=== PATIENT | male | born 1955 | race Caucasian/White ===

== ENCOUNTER 2019-05-19 10:33 | Outpatient (CLI) | payer OTHER, SELFPAY ==
[2019-05-19 11:36] LABS: Alanine Aminotransferase 70 U/L (16-63); Albumin Level 3.3 g/dL (3.4-5.0); Alkaline Phosphatase 94 U/L (46-116); Anion Gap 17.3 mmol/L (7-16); Aspartate Amino Transferase 63 U/L (15-37); Bilirubin,Total 0.3 mg/dL (0.00-1.00); Blood Urea Nitrogen 12 mg/dL (7-18); Carbon Dioxide 25 mmol/L (21-32); Chloride 101 mmol/L (98-108); Estimated Glomerular Filt Rate > 60; Glucose 104 mg/dL (70-99); Osmolality Calculated 287 mOsm/kg (285-295); Potassium 4.3 mmol/L (3.5-5.1); Sodium 139 mmol/L (136-145); Total Protein 6.7 g/dL (6.4-8.2)
== END 2019-05-19 10:34 | disposition home or self-care (01) ==
PROVIDERS: PCP Internal Medicine; Visit Provider Internal Medicine
DX: R79.89 Other specified abnormal findings of blood chemistry (principal)
CPT/HCPCS: 36415; 80053

== ENCOUNTER 2019-06-07 08:20 | Outpatient (CLI) | payer OTHER, SELFPAY ==
--- NOTE | ~2019-06-07 | US_ITS ---
EXAMINATION: US right upper quadrant EXAM DATE: 06/07/2019 11:13 INDICATION: Elevated liver enzymes. TECHNIQUE: Multiple grayscale and Doppler images of the abdomen right upper quadrant were obtained (dhruv y a technologist who performed the scan) and subsequently reviewed. There is no prior study for [place]. FINDINGS: The pancreatic head and body are normal in appearance. The pancreatic tail is not visualized. The l iver has normal echogenicity and contour. There are no focal liver lesions identified. There is no evidence of intrahepatic biliary duct dilation. Portal venous flow was seen in the hepatopedal, nor mal direction and has normal Doppler waveform. No right-sided hydronephrosis. Common bile duct measures 7 mm, tapering down to 5 at the pancreatic head, which is normal for age. T he gallbladder wall is normal in thickness, with expected amount of distention. No sonographic evide nce of pericholecystic fluid. There is no cholelithiases. Technologist performing exam reports patie nt did not demonstrate sonographic Zarco's sign. Please note that this sign is less reliable in pat ients who have received pain medication. IMPRESSION: 1. Unremarkable abdominal ultrasound exam. Reviewed, dictated and finalized at location A.
== END 2019-06-07 08:21 | disposition home or self-care (01) ==
LOC: CHSIMG 08:21
PROVIDERS: PCP Internal Medicine; Visit Provider Internal Medicine
DX: R79.89 Other specified abnormal findings of blood chemistry (principal)
CPT/HCPCS: 76705

== ENCOUNTER 2019-09-15 10:20 | Outpatient (CLI) | payer OTHER, SELFPAY ==
[2019-09-15 10:45] LABS: Add Urine Microscopic? YES; Appearance Urine Clear (Clear); Bilirubin Urine Negative (Negative); Blood Urine Negative (Negative); Color Urine Yellow (Yellow); Glucose Urine UA Negative (Negative); Ketones Urine Trace (Negative); Leukocyte Esterase Ur Negative (Negative); Nitrate Urine Negative (Negative); Protein Urine Negative (Negative); Specific Grav Ur 1.025 (1.010-1.020); Urobilinogen Urine 0.2 mg/dL (0.2-1.0)
[2019-09-15 11:02] LABS: Bacteria Urine 2+ /hpf; RBC Urine 0-2 /hpf (0-2); Squamous Epithelial Cell Urine Few /hpf (Few)
[2019-09-15 11:37] LABS: Alanine Aminotransferase 47 U/L (16-63); Albumin Level 3.4 g/dL (3.4-5.0); Alkaline Phosphatase 87 U/L (46-116); Anion Gap 15.6 mmol/L (7-16); Aspartate Amino Transferase 52 U/L (15-37); Bilirubin,Total 0.2 mg/dL (0.00-1.00); Blood Urea Nitrogen 11 mg/dL (7-18); Carbon Dioxide 25 mmol/L (21-32); Chloride 98 mmol/L (98-108); Cholesterol 186 mg/dL (0-200); Creatine Kinase 60 U/L (39-308); Estimated Glomerular Filt Rate > 60; Glucose 96 mg/dL (70-99); HDL Direct 63 mg/dL (40-60); LDL Cholesterol Calculated 32 mg/dL (<130); Osmolality Calculated 277 mOsm/kg (285-295); Potassium 4.6 mmol/L (3.5-5.1); Prostate Specific Antigen 2.2 ng/mL (< OR = 4.0); Sodium 134 mmol/L (136-145); Total Protein 6.8 g/dL (6.4-8.2); Triglycerides 454 mg/dL (0-150)
[2019-09-15 11:41] LABS: LDL Cholesterol Direct 68 mg/dL (0-130)
== END 2019-09-15 10:21 | disposition home or self-care (01) ==
PROVIDERS: PCP Internal Medicine; Visit Provider Internal Medicine
DX: E78.2 Mixed hyperlipidemia (principal); I10 Essential (primary) hypertension; Z12.5 Encounter for screening for malignant neoplasm of prostate
CPT/HCPCS: 36415; 80053; 80061; 81001; 82550; 83721; 84153; G0103

== ENCOUNTER 2019-10-23 09:44 | Outpatient (CLI) | payer OTHER, SELFPAY ==
--- NOTE | ~2019-10-23 | US_ITS ---
EXAMINATION: US arterial ankle brachial ind DATE: 10/23/2019 11:05 INDICATION: Peripheral arterial disease of the lower extremities. Hyperlipidemia, hypertension. Smoke r. TECHNIQUE: Segmental pressures and plethysmographic and Doppler waveforms of the brachial and lower e xtremity arteries were obtained. COMPARISON: None. FINDINGS: Right and left brachial artery pressures of 159 mm Hg and 143 mm Hg, respectively, are concordant (no rmal difference <= 30 mmHg). The right ankle-brachial index (NICHOL) is 0.77 (normal >= 0.9-1.0). Arterial Doppler waveforms are biph asic. The left NICHOL is 0.60. Arterial Doppler waveforms are biphasic. IMPRESSION: Abnormally low right and left NICHOL values of 0.77 and 0.60 Reviewed, dictated and finalized at Location A. Reviewed, dictated and finalized at location B.
== END 2019-10-23 09:45 | disposition home or self-care (01) ==
LOC: CHSIMG 09:45
PROVIDERS: PCP Internal Medicine; Visit Provider Internal Medicine
DX: I73.9 Peripheral vascular disease, unspecified (principal)
CPT/HCPCS: 93922

== ENCOUNTER 2020-03-25 08:31 | Outpatient (CLI) | payer OTHER, SELFPAY ==
[2020-03-25 08:45] LABS: Basophils Absolute Auto 0.09 K/mm3 (0.00-0.10); Basophils Percent Auto 0.8 % (0.0-1.0); Eosinophils Absolute Auto 0.11 K/mm3 (0.02-0.50); Hematocrit 40.6 % (40.0-54.0); Hemoglobin 14.2 g/dL (14.0-18.0); Immature Granulocyte Absolute 0.02 K/mm3 (0.00-0.00); Immature Granulocyte Percent A 0.2 % (0.0-0.0); Lymphocytes Absolute Auto 5.12 K/mm3 (1.10-4.50); Lymphocytes Percent Auto 46.8 % (18.0-42.0); Mean Corpuscular Hemoglobin 34.2 pg (27.0-31.0); Mean Corpuscular Volume 97.8 fL (78.0-102.0); Mean Platelet Volume 9.5 fl (8.7-11.0); Monocytes Absolute Auto 0.75 K/mm3 (0.10-0.90); Monocytes Percent Auto 6.9 % (2.0-11.0); Neutrophils Absolute Auto 4.9 K/mm3 (1.7-7.2); Neutrophils Percent Auto 44.3 % (50.0-70.0); Platelet Count Result 211 K/mm3 (150-420); Red Blood Count 4.15 M/mm3 (4.70-6.10); Red Cell Distribution Width 13.6 % (11.6-14.4); White Blood Count 10.9 K/mm3 (4.8-10.8)
[2020-03-25 08:50] LABS: Add Urine Microscopic? NO; Appearance Urine Clear (Clear); Bilirubin Urine Negative (Negative); Blood Urine Negative (Negative); Color Urine Yellow (Yellow); Glucose Urine UA Negative (Negative); Ketones Urine Negative (Negative); Leukocyte Esterase Ur Negative LEU/UL (Negative); Nitrate Urine Negative (Negative); Protein Urine Negative (Negative); Specific Grav Ur 1.015 (1.010-1.020); Urobilinogen Urine 0.2 mg/dL (0.2-1.0)
[2020-03-25 08:55] LABS: Hemoglobin A1C 5.5 % (<5.7)
[2020-03-25 09:41] LABS: Creatinine Urine 98.13 mg/dL (40-278); MALB Creatinine Ratio 13.2 mg/g (0-30); Microalbumin Urine Random < 13.0 mg/L
[2020-03-25 11:28] LABS: Alanine Aminotransferase 300 U/L (16-63); Aspartate Amino Transferase 423 U/L (15-37)
[2020-03-25 11:31] LABS: Chloride 95 mmol/L (98-108); Potassium 4.3 mmol/L (3.5-5.1); Sodium 130 mmol/L (136-145)
[2020-03-25 11:32] LABS: Anion Gap 8 mmol/L (8-16); Blood Urea Nitrogen 14 mg/dL (7-18); Carbon Dioxide 27 mmol/L (21-32); Estimated Glomerular Filt Rate > 60
[2020-03-25 11:33] LABS: Bilirubin,Total 0.7 mg/dL (0.00-1.00); Calcium 8.2 mg/dL (8.5-10.1); Magnesium 1.5 mg/dL (1.8-2.4); Triglycerides > 1000 mg/dL (0-150)
[2020-03-25 11:34] LABS: Albumin Level 2.6 g/dL (3.4-5.0); Creatine Kinase 56 U/L (39-308); Glucose 143 mg/dL (70-99); Osmolality Calculated 272 mOsm/kg (285-295)
[2020-03-25 11:35] LABS: Alkaline Phosphatase 175 U/L (46-116); Cholesterol 242 mg/dL (0-200); Free T3 2.18 pg/mL (2.18-3.98); Free T4 Free Thyroxine 0.96 ng/dL (0.76-1.46); HDL Direct 16 mg/dL (40-60); LDL Cholesterol Calculated 26 mg/dL (<130); Thyroid Stimulating Hormone 2.32 uIU/mL (0.36-3.74)
== END 2020-03-25 08:32 | disposition home or self-care (01) ==
LOC: CHSLAB 08:33
PROVIDERS: PCP Internal Medicine; Visit Provider Internal Medicine
DX: R73.01 Impaired fasting glucose (principal); I10 Essential (primary) hypertension; E78.5 Hyperlipidemia, unspecified; I49.3 Ventricular premature depolarization
CPT/HCPCS: 36415; 80053; 80061; 81003; 82043; 82550; 83036; 83735; 84439; 84443; 84481; 85025

== ENCOUNTER 2020-03-27 07:55 | Outpatient (CLI) | payer OTHER, SELFPAY ==
--- NOTE | ~2020-03-27 | US_ITS ---
US right upper quadrant INDICATION: Elevated liver enzymes PROCEDURE: Realtime right upper abdominal ultrasound. COMPARISON: No prior studies for comparison. FINDINGS: The pancreas is normal without focal mass or pancreatic ductal dilation. Liver echotexture is normal without focal mass or intrahepatic biliary dilatation. There is normal directional flow i n the portal vein. The gallbladder is normal without stones, gallbladder wall thickening or pericholecystic fluid. Comm on bile duct measures 7.4 mm, unchanged. No sonographic Zarco's sign. IMPRESSION: 1: Unremarkable limited abdominal ultrasound. Reviewed, dictated and finalized at location A. [employer]
== END 2020-03-27 07:56 | disposition home or self-care (01) ==
LOC: CHSIMG 07:56
PROVIDERS: PCP Internal Medicine; Visit Provider Internal Medicine
DX: R94.5 Abnormal results of liver function studies (principal)
CPT/HCPCS: 76705

== ENCOUNTER 2020-03-29 11:21 | Outpatient (CLI) | payer OTHER, SELFPAY ==
[2020-03-29 11:52] LABS: Basophils Absolute Auto 0.06 K/mm3 (0.00-0.10); Basophils Percent Auto 0.6 % (0.0-1.0); Eosinophils Absolute Auto 0.05 K/mm3 (0.02-0.50); Eosinophils Percent Auto 0.5 % (1.0-6.0); Hematocrit 40.1 % (40.0-54.0); Hemoglobin 13.9 g/dL (14.0-18.0); Immature Granulocyte Absolute 0.02 K/mm3 (0.00-0.00); Immature Granulocyte Percent A 0.2 % (0.0-0.0); Lymphocytes Absolute Auto 2.87 K/mm3 (1.10-4.50); Lymphocytes Percent Auto 29.2 % (18.0-42.0); Mean Corpuscular HGB Conc 34.7 g/dL (32.0-36.0); Mean Corpuscular Hemoglobin 34.2 pg (27.0-31.0); Mean Corpuscular Volume 98.5 fL (78.0-102.0); Mean Platelet Volume 9.8 fl (8.7-11.0); Monocytes Absolute Auto 0.95 K/mm3 (0.10-0.90); Monocytes Percent Auto 9.7 % (2.0-11.0); Neutrophils Absolute Auto 5.9 K/mm3 (1.7-7.2); Neutrophils Percent Auto 59.8 % (50.0-70.0); Platelet Count Result 199 K/mm3 (150-420); Red Blood Count 4.07 M/mm3 (4.70-6.10); Red Cell Distribution Width 14.2 % (11.6-14.4); White Blood Count 9.8 K/mm3 (4.8-10.8)
[2020-03-29 11:54] LABS: Add Urine Microscopic? NO; Appearance Urine Clear (Clear); Bilirubin Urine Negative (Negative); Blood Urine Negative (Negative); Color Urine Yellow (Yellow); Glucose Urine UA Negative (Negative); Ketones Urine Negative (Negative); Leukocyte Esterase Ur Negative (Negative); Nitrate Urine Negative (Negative); Protein Urine Negative (Negative); Urobilinogen Urine 0.2 mg/dL (0.2-1.0); pH Urine 6.5 (5.0-8.0)
[2020-03-29 12:10] LABS: SARS-CoV-2 Ag Negative (Negative)
[2020-03-29 12:41] LABS: Alanine Aminotransferase 211 U/L (16-63); Albumin Level 3.2 g/dL (3.4-5.0); Alkaline Phosphatase 157 U/L (46-116); Anion Gap 9 mmol/L (8-16); Aspartate Amino Transferase 143 U/L (15-37); Bilirubin,Total 0.5 mg/dL (0.00-1.00); Blood Urea Nitrogen 12 mg/dL (7-18); Calcium 9.2 mg/dL (8.5-10.1); Carbon Dioxide 27 mmol/L (21-32); Chloride 96 mmol/L (98-108); Estimated Glomerular Filt Rate > 60; Glucose 103 mg/dL (70-99); Lactate Dehydrogenase 234 U/L (85-227); Osmolality Calculated 273 mOsm/kg (285-295); Potassium 4.5 mmol/L (3.5-5.1); Sodium 132 mmol/L (136-145); Total Protein 6.8 g/dL (6.4-8.2)
[2020-03-29 12:47] LABS: HIV 1 P24 AG Negative (Negative); HIV 1/2 AB Negative (Negative)
[2020-03-29 12:51] LABS: GGT > 690.0 U/L (15-85)
[2020-03-29 12:55] LABS: Erythrocyte Sedimentation Rate 11 mm/hr (0-20)
[2020-04-04 11:43] LABS: Hepatitis B Surface Antibody Nonreactive (Nonreactive); Hepatitis C Signal to Cutoff 0.02 ratio (<1.00); Hepatitis C Virus Antibody Nonreactive (Nonreactive)
== END 2020-03-29 11:22 | disposition home or self-care (01) ==
LOC: CHSLAB 11:22
PROVIDERS: PCP Internal Medicine; Visit Provider Internal Medicine
DX: B17.9 Acute viral hepatitis, unspecified (principal); Z20.822 Contact with and (suspected) exposure to COVID-19
CPT/HCPCS: 36415; 80053; 81003; 82977; 83615; 85025; 85652; 86038; 86703; 86706; 86769; 87426; C9803

== ENCOUNTER 2020-04-05 08:07 | Outpatient (CLI) | payer OTHER, SELFPAY ==
[2020-04-05 09:15] LABS: Alanine Aminotransferase 73 U/L (16-63); Albumin Level 3.1 g/dL (3.4-5.0); Alkaline Phosphatase 95 U/L (46-116); Anion Gap 5 mmol/L (8-16); Aspartate Amino Transferase 35 U/L (15-37); Bilirubin,Total 0.4 mg/dL (0.00-1.00); Blood Urea Nitrogen 8 mg/dL (7-18); Calcium 9.3 mg/dL (8.5-10.1); Carbon Dioxide 29 mmol/L (21-32); Chloride 102 mmol/L (98-108); Estimated Glomerular Filt Rate > 60; Glucose 92 mg/dL (70-99); Osmolality Calculated 280 mOsm/kg (285-295); Potassium 4.6 mmol/L (3.5-5.1); Sodium 136 mmol/L (136-145); Total Protein 6.3 g/dL (6.4-8.2)
== END 2020-04-05 08:08 | disposition home or self-care (01) ==
LOC: CHSLAB 08:08
PROVIDERS: PCP Internal Medicine; Visit Provider Internal Medicine
DX: R94.5 Abnormal results of liver function studies (principal)
CPT/HCPCS: 36415; 80053

== ENCOUNTER 2020-05-06 08:45 | Outpatient (CLI) | payer OTHER, SELFPAY ==
[2020-05-06 10:00] LABS: Alanine Aminotransferase 35 U/L (16-63); Albumin Level 3.5 g/dL (3.4-5.0); Alkaline Phosphatase 72 U/L (46-116); Anion Gap 9 mmol/L (8-16); Aspartate Amino Transferase 25 U/L (15-37); Bilirubin,Total 0.3 mg/dL (0.00-1.00); Blood Urea Nitrogen 13 mg/dL (7-18); Carbon Dioxide 30 mmol/L (21-32); Chloride 97 mmol/L (98-108); Estimated Glomerular Filt Rate > 60; Glucose 100 mg/dL (70-99); Osmolality Calculated 282 mOsm/kg (285-295); Potassium 4.3 mmol/L (3.5-5.1); Sodium 136 mmol/L (136-145); Total Protein 6.9 g/dL (6.4-8.2)
== END 2020-05-06 08:46 | disposition home or self-care (01) ==
LOC: CHSLAB 08:46
PROVIDERS: PCP Internal Medicine; Visit Provider Internal Medicine
DX: R94.5 Abnormal results of liver function studies (principal)
CPT/HCPCS: 36415; 80053

== ENCOUNTER 2020-07-20 08:39 | Outpatient (CLI) | payer OTHER, SELFPAY | END 2020-07-20 08:40 | disposition home or self-care (01) | LOC: CHSCOVIDVC 08:39 | PROVIDERS: PCP Internal Medicine | DX: Z23 Encounter for immunization (principal) | CPT/HCPCS: 0011A; 91301 ==

== ENCOUNTER 2020-08-17 08:36 | Outpatient (CLI) | payer OTHER, SELFPAY | END 2020-08-17 08:37 | disposition home or self-care (01) | LOC: CHSCOVIDVC 08:36 | PROVIDERS: PCP Internal Medicine | DX: Z23 Encounter for immunization (principal) | CPT/HCPCS: 0012A; 91301 ==

== ENCOUNTER 2020-09-18 08:06 | Outpatient (CLI) | payer OTHER, SELFPAY ==
[2020-09-18 08:20] LABS: Add Urine Microscopic? YES; Appearance Urine Clear (Clear); Basophils Absolute Auto 0.08 K/mm3 (0.00-0.10); Basophils Percent Auto 0.8 % (0.0-1.0); Bilirubin Urine Negative (Negative); Blood Urine Negative (Negative); Color Urine Light Yellow (Yellow); Eosinophils Absolute Auto 0.39 K/mm3 (0.02-0.50); Glucose Urine UA Negative (Negative); Hematocrit 45.5 % (40.0-54.0); Hemoglobin 15.3 g/dL (14.0-18.0); Immature Granulocyte Absolute 0.02 K/mm3 (0.00-0.00); Immature Granulocyte Percent A 0.2 % (0.0-0.0); Ketones Urine Negative (Negative); Leukocyte Esterase Ur Trace LEU/UL (Negative); Lymphocytes Absolute Auto 4.21 K/mm3 (1.10-4.50); Lymphocytes Percent Auto 42.8 % (18.0-42.0); Mean Corpuscular HGB Conc 33.6 g/dL (32.0-36.0); Mean Corpuscular Hemoglobin 32.8 pg (27.0-31.0); Mean Corpuscular Volume 97.4 fL (78.0-102.0); Mean Platelet Volume 9.8 fl (8.7-11.0); Monocytes Absolute Auto 0.77 K/mm3 (0.10-0.90); Monocytes Percent Auto 7.8 % (2.0-11.0); Neutrophils Absolute Auto 4.4 K/mm3 (1.7-7.2); Neutrophils Percent Auto 44.4 % (50.0-70.0); Nitrate Urine Negative (Negative); Platelet Count Result 232 K/mm3 (150-420); Protein Urine Negative (Negative); Red Blood Count 4.67 M/mm3 (4.70-6.10); Urobilinogen Urine 0.2 mg/dL (0.2-1.0); White Blood Count 9.8 K/mm3 (4.8-10.8)
[2020-09-18 08:35] LABS: Creatinine Urine 106.16 mg/dL (40-278); MALB Creatinine Ratio 5.3 mg/g (0-30); Microalbumin Urine Random 5.7 mg/L
[2020-09-18 08:42] LABS: Bacteria Urine Trace /hpf; Hemoglobin A1C 5.4 % (<5.7); RBC Urine None seen /hpf (0-2); WBC Urine 0-3 /hpf (0-3)
[2020-09-18 09:32] LABS: Alanine Aminotransferase 35 U/L (16-63); Albumin Level 3.5 g/dL (3.4-5.0); Alkaline Phosphatase 70 U/L (46-116); Anion Gap 12 mmol/L (8-16); Aspartate Amino Transferase 27 U/L (15-37); Bilirubin,Total 0.4 mg/dL (0.00-1.00); Blood Urea Nitrogen 10 mg/dL (7-18); Calcium 9.7 mg/dL (8.5-10.1); Carbon Dioxide 28 mmol/L (21-32); Chloride 99 mmol/L (98-108); Cholesterol 257 mg/dL (0-200); Creatine Kinase 41 U/L (39-308); Estimated Glomerular Filt Rate > 60; Glucose 102 mg/dL (70-99); HDL Direct 52 mg/dL (40-60); LDL Cholesterol Calculated 135 mg/dL (<130); Osmolality Calculated 287 mOsm/kg (285-295); Potassium 4.5 mmol/L (3.5-5.1); Prostate Specific Antigen 2.5 ng/mL (< OR = 4.0); Sodium 139 mmol/L (136-145); Triglycerides 351 mg/dL (0-150)
== END 2020-09-18 08:07 | disposition home or self-care (01) ==
LOC: CHSLAB 08:07
PROVIDERS: PCP Internal Medicine; Visit Provider Internal Medicine
DX: E78.5 Hyperlipidemia, unspecified (principal); Z12.5 Encounter for screening for malignant neoplasm of prostate; I10 Essential (primary) hypertension; R73.01 Impaired fasting glucose
CPT/HCPCS: 36415; 80053; 80061; 81001; 82043; 82550; 83036; 84153; 85025; G0103

== ENCOUNTER 2020-12-16 12:12 | Outpatient (CLI) | payer OTHER, SELFPAY ==
--- NOTE | ~2020-12-16 | US_ITS ---
EXAMINATION: US arterial ankle brachial ind DATE: 12/16/2020 13:01 INDICATION: Bilateral peripheral arterial disease. Hypertension. Smoker. TECHNIQUE: Segmental pressures and plethysmographic and Doppler waveforms of the brachial and lower e xtremity arteries were obtained. COMPARISON: 10/23/2019 ultrasound NICHOL FINDINGS: Right and left brachial artery pressures of 143 mm Hg and 133 mm Hg, respectively, are concordant (no rmal difference <= 30 mmHg). The right ankle-brachial index (NICHOL) is 0.83 (normal >= 0.9-1.0). Arterial Doppler waveforms are trip hasic at the posterior tibial and dorsalis pedis arteries. The left NICHOL is 0.71. Arterial Doppler waveforms are biphasic at the posterior tibial and triphasic a t the dorsalis pedis arteries. IMPRESSION: Diminished right NICHOL is 0.83 Diminished left NICHOL of 0.71 These compared to right and left NICHOL values of 0.77 and 0.60, respectively on 10/23/2019 Reviewed, dictated and finalized at Location [facility]. Reviewed, dictated and finalized at location B.
--- NOTE | ~2020-12-16 | US_ITS ---
EXAMINATION: US carotid duplex BI DATE: 12/16/2020 13:01 INDICATION: Bilateral carotid artery stenosis TECHNIQUE: Grayscale, color Doppler, and pulsed Doppler images of the cervical carotid arteries were obtained. The degree of vessel stenosis is placed in one of the following categories: normal, <50%, 5 0-69%, >=70% but less than near-occlusion, near-occlusion, or total occlusion. Note that percent sten osis relative to normal distal artery lumen diameter is indirectly measured from velocity measurement s as described by Nacho, et al. Radiology 2003; 229:[id number]. COMPARISON: 02/21/2019 FINDINGS: RIGHT: The right common carotid artery (CCA) peak systolic velocity (PSV) is 91 cm/s. The right internal car otid artery (ICA) PSV is 233 cm/s. The right ICA end-diastolic velocity (EDV) is 46 cm/s. The right I CA/CCA PSV ratio is 2.5. Grayscale and color Doppler images yield an estimate of >=70% (but less than near occlusion) diameter reduction from plaque in the ICA. The external carotid artery (ECA) PSV is 142 cm/s. There is antegrade flow in the right vertebral artery. LEFT: The left CCA PSV is 149 cm/s. The left ICA PSV is 142 cm/s. The left ICA EDV is 28 cm/s. The left ICA /CCA PSV ratio is 1.0. Grayscale and color Doppler images yield an estimate of 50-69% diameter reduct ion from plaque in the ICA. The ECA PSV is 200 cm/s. There is antegrade flow in the left vertebral ar kathy. IMPRESSION: 1. >=70% (but less than near occlusion) stenosis in the right internal carotid artery. 2. 50-69% stenosis in the left internal carotid artery. Reviewed, dictated and finalized at location A.
== END 2020-12-16 12:13 | disposition home or self-care (01) ==
LOC: CHSIMG 12:13
PROVIDERS: PCP Internal Medicine; Visit Provider Internal Medicine
DX: I65.23 Occlusion and stenosis of bilateral carotid arteries (principal); I73.9 Peripheral vascular disease, unspecified
CPT/HCPCS: 93880; 93922

== ENCOUNTER 2021-04-15 08:59 | Outpatient (CLI) | payer OTHER, SELFPAY ==
[2021-04-15 09:39] LABS: Add Urine Microscopic? YES; Appearance Urine Clear (Clear); Bilirubin Urine Negative (Negative); Blood Urine Negative (Negative); Color Urine Light Yellow (Yellow); Glucose Urine UA Negative (Negative); Ketones Urine Negative (Negative); Leukocyte Esterase Ur Trace (Negative); Nitrate Urine Negative (Negative); Protein Urine Negative (Negative); Urobilinogen Urine 0.2 mg/dL (0.2-1.0); pH Urine 6.5 (5.0-8.0)
[2021-04-15 09:48] LABS: Hemoglobin A1C 5.6 % (<5.7)
[2021-04-15 09:51] LABS: Creatinine Urine 94.52 mg/dL (40-278); MALB Creatinine Ratio 13.7 mg/g (0-30); Microalbumin Urine Random < 13.0 mg/L
[2021-04-15 10:00] LABS: Bacteria Urine Trace /hpf; RBC Urine None seen /hpf (0-2); WBC Urine 0-3 /hpf (0-3)
[2021-04-15 10:02] LABS: Alanine Aminotransferase 33 U/L (16-63); Albumin Level 3.5 g/dL (3.4-5.0); Alkaline Phosphatase 62 U/L (46-116); Anion Gap 8 mmol/L (8-16); Aspartate Amino Transferase 21 U/L (15-37); Bilirubin,Total 0.3 mg/dL (0.00-1.00); Blood Urea Nitrogen 13 mg/dL (7-18); Calcium 9.4 mg/dL (8.5-10.1); Carbon Dioxide 29 mmol/L (21-32); Chloride 101 mmol/L (98-108); Cholesterol 274 mg/dL (0-200); Creatine Kinase 47 U/L (39-308); Estimated Glomerular Filt Rate > 60; Glucose 102 mg/dL (70-99); HDL Direct 57 mg/dL (40-60); LDL Cholesterol Calculated 165 mg/dL (<130); Osmolality Calculated 286 mOsm/kg (285-295); Potassium 4.2 mmol/L (3.5-5.1); Sodium 138 mmol/L (136-145); Total Protein 6.8 g/dL (6.4-8.2); Triglycerides 262 mg/dL (0-150)
== END 2021-04-15 09:00 | disposition home or self-care (01) ==
LOC: CHSLAB 09:00
PROVIDERS: PCP Internal Medicine; Visit Provider Internal Medicine
DX: E78.2 Mixed hyperlipidemia (principal); I10 Essential (primary) hypertension; R73.01 Impaired fasting glucose
CPT/HCPCS: 36415; 80053; 80061; 81001; 82043; 82550; 83036

== ENCOUNTER 2021-11-07 08:21 | Outpatient (CLI) | payer OTHER, SELFPAY ==
[2021-11-07 08:32] LABS: Basophils Absolute Auto 0.08 K/mm3 (0.00-0.10); Basophils Percent Auto 0.7 % (0.0-1.0); Eosinophils Absolute Auto 0.23 K/mm3 (0.02-0.50); Eosinophils Percent Auto 2.1 % (1.0-6.0); Hematocrit 43.2 % (40.0-54.0); Hemoglobin 14.7 g/dL (14.0-18.0); Immature Granulocyte Absolute 0.02 K/mm3 (0.00-0.00); Immature Granulocyte Percent A 0.2 % (0.0-0.0); Lymphocytes Percent Auto 40.1 % (18.0-42.0); Mean Corpuscular Hemoglobin 32.9 pg (27.0-31.0); Mean Corpuscular Volume 96.6 fL (78.0-102.0); Mean Platelet Volume 9.4 fl (8.7-11.0); Monocytes Absolute Auto 0.93 K/mm3 (0.10-0.90); Monocytes Percent Auto 8.7 % (2.0-11.0); Neutrophils Absolute Auto 5.2 K/mm3 (1.7-7.2); Neutrophils Percent Auto 48.2 % (50.0-70.0); Platelet Count Result 248 K/mm3 (150-420); Red Blood Count 4.47 M/mm3 (4.70-6.10); Red Cell Distribution Width 14.1 % (11.6-14.4); White Blood Count 10.7 K/mm3 (4.8-10.8)
[2021-11-07 08:33] LABS: Add Urine Microscopic? NO; Appearance Urine Clear (Clear); Bilirubin Urine Negative (Negative); Blood Urine Negative (Negative); Color Urine Yellow (Yellow); Glucose Urine UA Negative (Negative); Ketones Urine Negative (Negative); Leukocyte Esterase Ur Negative (Negative); Nitrate Urine Negative (Negative); Protein Urine Negative (Negative); Specific Grav Ur 1.015 (1.010-1.020); Urobilinogen Urine 0.2 mg/dL (0.2-1.0)
[2021-11-07 09:10] LABS: Alanine Aminotransferase 41 U/L (16-63); Albumin Level 3.4 g/dL (3.4-5.0); Alkaline Phosphatase 80 U/L (46-116); Anion Gap 8 mmol/L (8-16); Aspartate Amino Transferase 38 U/L (15-37); Bilirubin,Total 0.4 mg/dL (0.00-1.00); Blood Urea Nitrogen 7 mg/dL (7-18); Carbon Dioxide 27 mmol/L (21-32); Chloride 99 mmol/L (98-108); Cholesterol 185 mg/dL (0-200); Creatine Kinase 42 U/L (39-308); Estimated Glomerular Filt Rate > 60; Glucose 124 mg/dL (70-99); HDL Direct 63 mg/dL (40-60); LDL Cholesterol Calculated 65 mg/dL (<130); Osmolality Calculated 277 mOsm/kg (285-295); Sodium 134 mmol/L (136-145); Triglycerides 286 mg/dL (0-150)
== END 2021-11-07 08:22 | disposition home or self-care (01) ==
LOC: CHSLAB 08:22
PROVIDERS: PCP Internal Medicine; Visit Provider Internal Medicine
DX: Z00.00 Encounter for general adult medical examination without abnormal findings (principal); E78.2 Mixed hyperlipidemia; I10 Essential (primary) hypertension; R73.01 Impaired fasting glucose; Z12.5 Encounter for screening for malignant neoplasm of prostate
CPT/HCPCS: 36415; 80053; 80061; 81003; 82550; 84153; 85025; G0103

== ENCOUNTER 2021-12-04 07:18 | Outpatient (CLI) | payer MEDICARE, SELFPAY ==
--- NOTE | ~2021-12-04 | XR_ITS ---
EXAMINATION: XR chest 2V DATE: 12/04/2021 07:47 INDICATION: COPD and asbestos exposure TECHNIQUE: PA and lateral views of the chest are obtained. COMPARISON: 02/08/2019 FINDINGS: The lungs are free of acute opacities. No pleural effusion or pneumothorax. The cardiomedia stinal silhouette is normal. There is mild thoracic spondylosis. Calcified pulmonary nodules are cons istent with old granulomatous disease. IMPRESSION: 1. No acute cardiopulmonary abnormality. Reviewed, dictated and finalized at location B.
--- NOTE | ~2021-12-04 | US_ITS ---
EXAMINATION: US aorta DATE: 12/04/2021 09:19 INDICATION: Aortic bruit. TECHNIQUE: Grayscale, color Doppler, and pulsed Doppler images of the aorta and common iliac arteries were obtained. COMPARISON: None. FINDINGS: The proximal aorta measures 2.2 cm in AP diameter. The mid aorta measures 1.7 cm. The distal aorta me asures 2.1 cm. The right and left common iliac arteries were unable to be visualized due to shadowing bowel gas. Incidental 6.3 cm left renal cyst. IMPRESSION: 1. Normal caliber abdominal aorta. Reviewed, dictated and finalized at location A.
--- NOTE | ~2021-12-04 | US_ITS ---
EXAMINATION: US carotid duplex BI DATE: 12/04/2021 09:18 INDICATION: Carotid stenosis TECHNIQUE: Grayscale, color Doppler, and pulsed Doppler images of the cervical carotid arteries were obtained. The degree of vessel stenosis is placed in one of the following categories: normal, <50%, 5 0-69%, >=70% but less than near-occlusion, near-occlusion, or total occlusion. Note that percent sten osis relative to normal distal artery lumen diameter is indirectly measured from velocity measurement s as described by Nacho, et al. Radiology 2003; [id number]:340-346. COMPARISON: 12/16/2020 FINDINGS: RIGHT: The right common carotid artery (CCA) peak systolic velocity (PSV) is 83 cm/s. The right internal car otid artery (ICA) PSV is 253 cm/s. The right ICA end-diastolic velocity (EDV) is 42 cm/s. The right I CA/CCA PSV ratio is 3.0. Grayscale and color Doppler images yield an estimate of 50-69% diameter redu ction from plaque in the ICA. The external carotid artery (ECA) PSV is 137 cm/s. There is antegrade f low in the right vertebral artery. LEFT: The left CCA PSV is 118 cm/s. The left ICA PSV is 136 cm/s. The left ICA EDV is 27 cm/s. The left ICA /CCA PSV ratio is 1.2. Grayscale and color Doppler images yield an estimate of 50-69% diameter reduct ion from plaque in the ICA. The ECA PSV is 187 cm/s. There is antegrade flow in the left vertebral ar kathy. IMPRESSION: 1. >=70% (but less than near occlusion) stenosis in the right internal carotid artery. 2. 50-69% stenosis in the left internal carotid artery. Reviewed, dictated and finalized at location A.
== END 2021-12-04 07:19 | disposition home or self-care (01) ==
LOC: CHSIMG 07:23
PROVIDERS: PCP Internal Medicine; Visit Provider Internal Medicine
DX: I65.23 Occlusion and stenosis of bilateral carotid arteries (principal); I73.9 Peripheral vascular disease, unspecified; J44.9 Chronic obstructive pulmonary disease, unspecified; R09.89 Other specified symptoms and signs involving the circulatory and respiratory systems
CPT/HCPCS: 71046; 76775; 93880

== ENCOUNTER 2021-12-18 12:17 | Outpatient (CLI) | payer MEDICARE, SELFPAY ==
--- NOTE | ~2021-12-18 | US_ITS ---
EXAMINATION: US art doppler w press LE BI DATE: 12/18/2021 13:25 INDICATION: Peripheral arterial occlusive disease with discoloration and coolness to the bilateral fe et. TECHNIQUE: Segmental pressures and plethysmographic and Doppler waveforms of the brachial and lower e xtremity arteries were obtained. COMPARISON: None. FINDINGS: Right and left brachial artery pressures of 140 mm Hg and 145 mm Hg, respectively, are concordant (no rmal difference <= 30 mmHg). The right and left high-thigh pressure indices as well as segmental pres sures were unable to be obtained in either lower limb due to inability to occlude the vessels above t he level of the ankles. The right ankle-brachial index (NICHOL) is 0.86 (normal >= 0.9-1). The right great toe-brachial index (T BI) is 0.36 (normal >= 0.6-0.8). Arterial waveforms are triphasic with brisk systolic upstrokes throu ghout the arteries of the right lower limb. The left NICHOL is 0.54 basilar upon the pressure in the left posterior tibial artery as there is no dis cernible pulse in the left dorsalis pedis artery. The left TBI was also unable to be obtained due to absence of a dopplerable pulse at the left great toe. Arterial waveforms are biphasic with brisk syst olic upstrokes throughout. IMPRESSION: 1. Arterial occlusive disease to the bilateral lower limbs with mildly decreased right and moderately decreased left ABIs. 2. No dopplerable pulse in the left dorsalis pedis artery and at the left great toe. Reviewed, dictated and finalized at location A. IMPRESSION: 1. Arterial occlusive disease to the bilateral lower limbs with mildly decrease d right and moderately decreased left ABIs. 2. No dopplerable pulse in the left dorsalis pedis artery and at the left great toe.
== END 2021-12-18 12:18 | disposition home or self-care (01) ==
PROVIDERS: PCP Internal Medicine; Visit Provider Internal Medicine
DX: I73.9 Peripheral vascular disease, unspecified (principal); J44.9 Chronic obstructive pulmonary disease, unspecified; R09.89 Other specified symptoms and signs involving the circulatory and respiratory systems
CPT/HCPCS: 93923

== ENCOUNTER 2022-02-27 09:08 | Outpatient (CLI) | payer MEDICARE, SELFPAY ==
[2022-02-27 09:46] LABS: Hemoglobin A1C 5.5 % (<5.7)
[2022-02-27 10:17] LABS: Alanine Aminotransferase 61 U/L (16-63); Albumin Level 3.3 g/dL (3.4-5.0); Alkaline Phosphatase 83 U/L (46-116); Anion Gap 6 mmol/L (8-16); Aspartate Amino Transferase 58 U/L (15-37); Bilirubin,Total 0.4 mg/dL (0.00-1.00); Blood Urea Nitrogen 10 mg/dL (7-18); Calcium 9.4 mg/dL (8.5-10.1); Carbon Dioxide 30 mmol/L (21-32); Chloride 100 mmol/L (98-108); Estimated Glomerular Filt Rate > 60; Glucose 104 mg/dL (70-99); Osmolality Calculated 281 mOsm/kg (285-295); Potassium 4.7 mmol/L (3.5-5.1); Sodium 136 mmol/L (136-145); Total Protein 6.5 g/dL (6.4-8.2)
== END 2022-02-27 09:09 | disposition home or self-care (01) ==
LOC: CHSLAB 09:10
PROVIDERS: PCP Internal Medicine; Visit Provider Internal Medicine
DX: R94.5 Abnormal results of liver function studies (principal); R73.01 Impaired fasting glucose
CPT/HCPCS: 36415; 80053; 83036

== ENCOUNTER 2022-04-02 08:45 | Outpatient (CLI) | payer MEDICARE, SELFPAY ==
[2022-04-02 09:54] LABS: Alanine Aminotransferase 28 U/L (16-63); Albumin Level 3.6 g/dL (3.4-5.0); Alkaline Phosphatase 54 U/L (46-116); Anion Gap 7 mmol/L (8-16); Aspartate Amino Transferase 19 U/L (15-37); Bilirubin,Total 0.3 mg/dL (0.00-1.00); Blood Urea Nitrogen 11 mg/dL (7-18); Carbon Dioxide 29 mmol/L (21-32); Chloride 99 mmol/L (98-108); Estimated Glomerular Filt Rate > 60; Glucose 102 mg/dL (70-99); Osmolality Calculated 279 mOsm/kg (285-295); Potassium 3.8 mmol/L (3.5-5.1); Sodium 135 mmol/L (136-145); Total Protein 6.5 g/dL (6.4-8.2)
== END 2022-04-02 08:46 | disposition home or self-care (01) ==
LOC: CHSLAB 08:46
PROVIDERS: PCP Internal Medicine; Visit Provider Internal Medicine
DX: R94.5 Abnormal results of liver function studies (principal)
CPT/HCPCS: 36415; 80053

== ENCOUNTER 2022-04-08 05:56 | Day surgery (SDC) | payer MEDICARE, SELFPAY ==
[2022-03-25 09:49] VITALS: BMI 25.1
--- NOTE | 2022-04-07 10:14 | WPDANESEPPF ---
Anes - Initial Pre Proc Eval Procedure: Operation Date: 04/08/22 07:30 Proposed Procedures p Screening Colonoscopy - Raymond Leroy DO Date/Time: 04/07/22 10:14 Surgeon: Raymond Leroy DO Pre Op Diagnosis: History of Colon Polyps and Abnormal CT Patient Data Age: 66 Gender: M Height: 1.73 m Weight: 75 kg Allergies Allergy/AdvReac Type Severity Reaction Status Date / Time No Known Allergies Allergy Verified 04/08/22 06:17 Home Medications Medication Instructions Recorded Confirmed Type amlodipine 5 mg tablet 5 mg PO DAILY 01/15/22 04/08/22 History aspirin 325 mg tablet 325 mg PO DAILY 01/15/22 04/08/22 History atenolol 25 mg tablet 25 mg PO DAILY 01/15/22 04/08/22 History cilostazol 100 mg tablet 100 mg PO BID 01/15/22 04/08/22 History lisinopril 10 mg tablet 20 mg PO DAILY 01/19/22 04/08/22 History simvastatin 20 mg tablet 10 mg PO QPM 01/19/22 04/08/22 History hydrochlorothiazide 12.5 mg capsule 12.5 mg PO DAILY 03/25/22 04/08/22 History Patient hx anesthesia problems: none Family hx anesthesia problems: none Results Review: All pre-operative results and documents have been reviewed as part of the pre-operative evaluation. [facility] Past Medical History Medical History COPD (chronic obstructive pulmonary disease) High cholesterol Hypertension Surgical History Surgical History S/P vasectomy Family History Family History Father CAD (coronary artery disease) Sibling Cerebrovascular accident Unknown Cancer Social History Social History (Updated 04/08/22 @ 06:49 by Wicho Estrada DO) Years smoked: 30 Smoking status: Current every day smoker Tobacco type: cigarettes Alcohol intake: former Alcohol use details: 6 beers/day Substance use: never Substance use type: does not use Spiritual care concerns: No Anes - Eval Final PreProcedure Day of Procedure 04/07/22 10:14 Patient weight: overweight Heart: regular rate and rhythm Lungs: clear to auscultation Airway: Mallampati scale class II Neurological: alert and oriented Last oral intake: >/= 8 hours ASA classification: III Emergent: no Anesthetic plan: proceed Anesthesia type and monitoring: general GIVS and standard monitoring Results Review: All pre-operative results and documents have been reviewed as part of the pre-operative evaluation. Informed Consent: The patient's anesthetic plan and its attendant risks and benefits were discussed with the patient/family/POA. Questions were solicited and answers provided to the satisfaction of the patient/family/POA.
[2022-04-08 06:19] VITALS: BP 118/81; PULSE 79; RESP 20; TEMP 36.8; O2SAT 98
[2022-04-08] MEDS: LACTATED RINGERS 1,000 ML 150 ML IV CONT (06:27)
--- NOTE | 2022-04-08 07:22 | PM.IMHP ---
H&P: HPI History of Present Illness Date/Time: 04/08/22 07:22 Chief Complaint: abnormal CT Narrative: 66 yo man presents for colonoscopy. He had a recent CT for PVD and this showed an abnormality in the sigmoid colon. He had a colonoscopy in 2019 and multiple polyps were removed. Review of Systems Review of Systems: All systems reviewed & are unremarkable except as noted in HPI and below Constitutional: Constitutional: Denies chills, Denies fever(s), Denies headache(s) and Denies weight loss Eyes: Eyes: Denies change in vision ENT: Denies dizziness, Denies headache(s), Denies neck mass and Denies throat swelling Cardiovascular: Cardiovascular: Denies chest pain, Denies lightheadedness and Denies dyspnea Respiratory: Respiratory: Denies cough, Denies dyspnea and Denies wheezing Gastrointestinal: Gastrointestinal: Denies abdominal pain, Denies change in bowel habits, Denies nausea and Denies vomiting Genitourinary: Genitourinary: Denies hematuria and Denies dysuria Musculoskeletal: Musculoskeletal: Reports as per HPI Integumentary/Breasts: Skin/Breast: Reports as per HPI Neurologic: Denies dizziness and Denies headache(s) Allergic/Immunologic: Allergic/Immunologic: Denies throat swelling and Denies wheezing PMFSH Past Medical History Medical History COPD (chronic obstructive pulmonary disease) High cholesterol Hypertension Surgical History Surgical History S/P vasectomy Family History Family History Father CAD (coronary artery disease) Sibling Cerebrovascular accident Unknown Cancer Social History Social History (Updated 04/08/22 @ 06:49 by Wicho Estrada DO) Years smoked: 30 Smoking status: Current every day smoker Tobacco type: cigarettes Alcohol intake: former Alcohol use details: 6 beers/day Substance use: never Substance use type: does not use Living arrangements: with family Spiritual care concerns: No Meds Home Medications and Allergies Home Medications Medication Instructions Recorded Confirmed Type amlodipine 5 mg tablet 5 mg PO DAILY 01/15/22 04/08/22 History aspirin 325 mg tablet 325 mg PO DAILY 01/15/22 04/08/22 History atenolol 25 mg tablet 25 mg PO DAILY 01/15/22 04/08/22 History cilostazol 100 mg tablet 100 mg PO BID 01/15/22 04/08/22 History lisinopril 10 mg tablet 20 mg PO DAILY 01/19/22 04/08/22 History simvastatin 20 mg tablet 10 mg PO QPM 01/19/22 04/08/22 History hydrochlorothiazide 12.5 mg capsule 12.5 mg PO DAILY 03/25/22 04/08/22 History Allergies Allergy/AdvReac Type Severity Reaction Status Date / Time No Known Allergies Allergy Verified 04/08/22 06:17 Vital Signs Vital Signs - 24 hr 04/08/22 06:19 Temperature 36.8 C Pulse Rate 79 Respiratory Rate 20 Blood Pressure 118/81 Pulse Oximetry 98 Oxygen Delivery Room Air Exam Const: General: no acute distress and alert Orientation/consciousness: patient oriented x3 HENMT: Head: normocephalic and atraumatic Ears: hearing grossly normal bilaterally Face/Nose/Sinus: Normal nares present Mouth: Yes Normal oral and palatal mucosa present Eyes: Periorbital: periorbital findings normal Sclera: sclerae normal EOM: EOMs intact bilaterally Neck: Neck: normal visual inspection, no lymphadenopathy and trachea midline Chest: Chest palpation & inspection: normal inspection of the chest Resp: Effort & Inspection: normal respiratory effort Auscultation: clear to auscultation bilaterally Cardio: Jugular venous distension: no JVD Rate: regular rate Rhythm: regular rhythm Heart sounds: S1 normal heart sound present and S2 normal heart sound present Peripheral pulses: Peripheral pulses 2+ throughout GI: Inspection: normal to inspection GI Palp: Yes Soft to palpation, No Tenderness to palpation presen
[2022-04-08 08:12] VITALS: BP 85/47; PULSE 66; RESP 18; O2SAT 94
[2022-04-08 08:22] VITALS: BP 104/66; PULSE 75; RESP 18; O2SAT 100
[2022-04-08 08:32] VITALS: BP 122/79; PULSE 77; RESP 20; O2SAT 100
--- NOTE | 2022-04-08 11:57 | WPDANESPN ---
Anes - Prog Note Post-Op Date/Time: 04/08/22 11:57 Cardiovascular status: normal Respiratory status: normal Airway patency: baseline Mental status: baseline Post-Op hydration status: normal Vital Signs: Last Vital Signs Temp 36.8 C 04/08/22 06:19 Pulse 77 04/08/22 08:32 Resp 20 04/08/22 08:32 BP 122/79 04/08/22 08:32 Pulse Ox 100 04/08/22 08:32 O2 Del Method Room Air 04/08/22 08:32 O2 Flow Rate 3 04/08/22 08:12 Pain Score (VAS): 0 I/O: Intake & Output 04/07/22 04/08/22 04/08/22 23:59 07:59 15:59 Intake Total 900 Balance 900 Post-procedural complaints: none Patient Feedback: Patient satisfied with anesthetic care. Other Findings: Patient vital signs back to baseline. Patient denies nausea and vomiting. Patient's pain under control. Patient OK for discharge.
== END 2022-04-08 08:48 | disposition home or self-care (01) ==
PROVIDERS: PCP Internal Medicine; Visit Provider Surgery
PROC: 0DJD8ZZ Inspection of Lower Intestinal Tract, Via Natural or Artificial Opening Endoscopic (ICD-10-PCS; CPT 45378; principal; 2022-04-08 07:30)
DX: Z86.010 Personal history of colon polyps (principal)
CPT/HCPCS: 45385; 45380

== ENCOUNTER 2022-04-08 09:00 | Outpatient (NON) | payer MEDICARE, SELFPAY | END 2022-04-08 09:01 | disposition home or self-care (01) | PROVIDERS: PCP Internal Medicine; Visit Provider Surgery | DX: D12.0 Benign neoplasm of cecum (principal); D12.2 Benign neoplasm of ascending colon; D12.3 Benign neoplasm of transverse colon | CPT/HCPCS: 88305 ==

== ENCOUNTER 2022-05-14 09:13 | Outpatient (CLI) | payer MEDICARE, SELFPAY | END 2022-05-14 09:14 | disposition home or self-care (01) | LOC: CHSLAB 09:15 | PROVIDERS: PCP Internal Medicine; Visit Provider Internal Medicine | DX: Z20.2 Contact with and (suspected) exposure to infections with a predominantly sexual mode of transmission (principal) | CPT/HCPCS: 87661 ==

== ENCOUNTER 2022-08-31 09:41 | Outpatient (CLI) | payer MEDICARE, SELFPAY ==
[2022-08-31 10:15] LABS: Appearance Urine Clear (Clear); Basophils Absolute Auto 0.06 K/mm3 (0.00-0.10); Basophils Percent Auto 0.8 % (0.0-1.0); Bilirubin Urine Negative (Negative); Blood Urine Negative (Negative); Color Urine Yellow (Yellow); Eosinophils Absolute Auto 0.19 K/mm3 (0.02-0.50); Eosinophils Percent Auto 2.4 % (1.0-6.0); Glucose Urine UA Negative (Negative); Hematocrit 40.1 % (37.0-46.0); Hemoglobin 13.6 g/dL (12.4-15.3); Immature Granulocyte Absolute 0.01 K/mm3 (0.00-0.00); Immature Granulocyte Percent A 0.1 % (0.0-0.0); Ketones Urine Negative (Negative); Leukocyte Esterase Ur Negative LEU/UL (Negative); Lymphocytes Percent Auto 31.9 % (18.0-42.0); Mean Corpuscular HGB Conc 33.9 g/dL (32.0-36.0); Mean Corpuscular Hemoglobin 31.8 pg (27.0-31.0); Mean Corpuscular Volume 93.7 fL (78.0-102.0); Monocytes Absolute Auto 0.84 K/mm3 (0.10-0.90); Monocytes Percent Auto 10.7 % (2.0-11.0); Neutrophils Absolute Auto 4.2 K/mm3 (1.7-7.2); Neutrophils Percent Auto 54.1 % (50.0-70.0); Nitrate Urine Negative (Negative); Platelet Count Result 255 K/mm3 (150-420); Protein Urine Negative (Negative); Red Blood Count 4.28 M/mm3 (4.70-6.10); Red Cell Distribution Width 14.8 % (11.6-14.4); Specific Grav Ur 1.015 (1.010-1.020); Urobilinogen Urine 0.2 mg/dL (0.2-1.0); White Blood Count 7.8 K/mm3 (4.8-10.8); pH Urine 6.5 (5.0-8.0)
[2022-08-31 10:16] LABS: Add Urine Microscopic? NO
[2022-08-31 10:26] LABS: Hemoglobin A1C 5.4 % (<5.7)
[2022-08-31 10:30] LABS: Alanine Aminotransferase 28 U/L (16-63); Albumin Level 3.8 g/dL (3.4-5.0); Alkaline Phosphatase 52 U/L (46-116); Anion Gap 9 mmol/L (8-16); Aspartate Amino Transferase 22 U/L (15-37); Bilirubin,Total 0.3 mg/dL (0.00-1.00); Blood Urea Nitrogen 11 mg/dL (7-18); Calcium 9.5 mg/dL (8.5-10.1); Carbon Dioxide 28 mmol/L (21-32); Chloride 98 mmol/L (98-108); Cholesterol 161 mg/dL (0-200); Creatine Kinase 44 U/L (39-308); Estimated Glomerular Filt Rate > 60; Glucose 109 mg/dL (70-99); HDL Direct 81 mg/dL (40-60); LDL Cholesterol Calculated 65 mg/dL (<130); Osmolality Calculated 280 mOsm/kg (285-295); Potassium 4.1 mmol/L (3.5-5.1); Sodium 135 mmol/L (136-145); Total Protein 6.8 g/dL (6.4-8.2); Triglycerides 77 mg/dL (0-150)
== END 2022-08-31 09:42 | disposition home or self-care (01) ==
LOC: CHSLAB 09:43
PROVIDERS: PCP Internal Medicine; Visit Provider Internal Medicine
DX: E78.2 Mixed hyperlipidemia (principal); R73.01 Impaired fasting glucose; N39.0 Urinary tract infection, site not specified
CPT/HCPCS: 36415; 80053; 80061; 81003; 82550; 83036; 85025

== ENCOUNTER 2023-03-30 09:36 | Outpatient (CLI) | payer MEDICARE, SELFPAY ==
[2023-03-30 09:56] LABS: Basophils Absolute Auto 0.06 K/mm3 (0.00-0.10); Basophils Percent Auto 0.5 % (0.0-1.0); Eosinophils Absolute Auto 0.16 K/mm3 (0.02-0.50); Eosinophils Percent Auto 1.5 % (1.0-6.0); Hematocrit 37.3 % (37.0-46.0); Hemoglobin 12.9 g/dL (12.4-15.3); Immature Granulocyte Absolute 0.04 K/mm3 (0.00-0.00); Immature Granulocyte Percent A 0.4 % (0.0-0.0); Lymphocytes Absolute Auto 2.99 K/mm3 (1.10-4.50); Lymphocytes Percent Auto 27.3 % (18.0-42.0); Mean Corpuscular HGB Conc 34.6 g/dL (32.0-36.0); Mean Corpuscular Hemoglobin 32.9 pg (27.0-31.0); Mean Corpuscular Volume 95.2 fL (78.0-102.0); Mean Platelet Volume 8.3 fl (8.7-11.0); Monocytes Absolute Auto 0.86 K/mm3 (0.10-0.90); Monocytes Percent Auto 7.9 % (2.0-11.0); Neutrophils Absolute Auto 6.8 K/mm3 (1.7-7.2); Neutrophils Percent Auto 62.4 % (50.0-70.0); Platelet Count Result 323 K/mm3 (150-420); Red Blood Count 3.92 M/mm3 (4.70-6.10); Red Cell Distribution Width 13.4 % (11.6-14.4); White Blood Count 10.9 K/mm3 (4.8-10.8)
[2023-03-30 09:57] LABS: Bilirubin Urine Negative (Negative); Blood Urine Negative (Negative); Color Urine Light Yellow (Yellow); Glucose Urine UA Negative (Negative); Ketones Urine Negative (Negative); Leukocyte Esterase Ur 2+ (Negative); Nitrate Urine Negative (Negative); Protein Urine Negative (Negative); Specific Grav Ur 1.015 (1.010-1.020); Urobilinogen Urine 0.2 mg/dL (0.2-1.0)
[2023-03-30 10:10] LABS: Add Urine Microscopic? YES; Appearance Urine Slightly Cloudy (Clear); RBC Urine None seen /hpf (0-2); WBC Urine 21-30 /hpf (0-3)
[2023-03-30 10:11] LABS: Bacteria Urine 3+ /hpf
[2023-03-30 10:24] LABS: Hemoglobin A1C 5.6 % (<5.7)
[2023-03-30 11:04] LABS: Alanine Aminotransferase 30 U/L (16-63); Albumin Level 3.6 g/dL (3.4-5.0); Alkaline Phosphatase 50 U/L (46-116); Anion Gap 11 mmol/L (8-16); Aspartate Amino Transferase 17 U/L (15-37); Bilirubin,Total 0.4 mg/dL (0.00-1.00); Blood Urea Nitrogen 7 mg/dL (7-18); Calcium 9.6 mg/dL (8.5-10.1); Carbon Dioxide 27 mmol/L (21-32); Chloride 95 mmol/L (98-108); Cholesterol 156 mg/dL (0-200); Creatine Kinase 38 U/L (39-308); Estimated Glomerular Filt Rate > 60; Glucose 112 mg/dL (70-99); HDL Direct 74 mg/dL (40-60); LDL Cholesterol Calculated 68 mg/dL (<130); Osmolality Calculated 275 mOsm/kg (285-295); Potassium 4.4 mmol/L (3.5-5.1); Sodium 133 mmol/L (136-145); Total Protein 6.5 g/dL (6.4-8.2); Triglycerides 70 mg/dL (0-150)
== END 2023-03-30 09:37 | disposition home or self-care (01) ==
LOC: CHSLAB 09:38
PROVIDERS: PCP Internal Medicine; Visit Provider Internal Medicine
DX: R73.01 Impaired fasting glucose (principal); I10 Essential (primary) hypertension; E78.2 Mixed hyperlipidemia; I49.3 Ventricular premature depolarization; R97.20 Elevated prostate specific antigen [PSA]
CPT/HCPCS: 36415; 80053; 80061; 81001; 82550; 83036; 84153; 85025

== ENCOUNTER 2023-06-04 09:34 | Outpatient (CLI) | payer MEDICARE, SELFPAY ==
[2023-06-08 17:53] LABS: PSA, Free 0.47 ng/mL; PSA, Total 3.7 ng/mL (<=4.0); Percent Free Prostate Spec Ag 13 % (>25)
== END 2023-06-04 09:35 | disposition home or self-care (01) ==
LOC: CHSLAB 09:38
PROVIDERS: PCP Internal Medicine; Visit Provider Internal Medicine
DX: R97.20 Elevated prostate specific antigen [PSA] (principal)
CPT/HCPCS: 36415; 84153; 84154

== ENCOUNTER 2023-09-28 08:15 | Outpatient (CLI) | payer MEDICARE, SELFPAY ==
[2023-09-28 08:27] LABS: Hematocrit 40.1 % (37.0-46.0); Mean Corpuscular HGB Conc 34.9 g/dL (32-36); Mean Corpuscular Hemoglobin 32.1 pg (27.0-31.0); Mean Platelet Volume 8.5 fl (8.7-11.0); Platelet Count Result 273 K/mm3 (150-420); Red Blood Count 4.36 M/mm3 (4.70-6.10); Red Cell Distribution Width 14.4 % (11.6-14.4); White Blood Count 8.9 K/mm3 (4.8-10.8)
[2023-09-28 08:30] LABS: Appearance Urine Sl Cloudy (Clear); Bilirubin Urine Negative (Negative); Blood Urine Negative (Negative); Color Urine Yellow (Yellow); Glucose Urine UA Negative (Negative); Ketones Urine Negative (Negative); Leukocyte Esterase Ur 3+ LEU/UL (Negative); Nitrate Urine Negative (Negative); Protein Urine Negative (Negative); Urobilinogen Urine 0.2 mg/dL (0.2-1.0)
[2023-09-28 08:59] LABS: Add Urine Microscopic? YES; Bacteria Urine 3+ /hpf; RBC Urine None seen /hpf (0-2); WBC Urine 31-50 /hpf (0-3)
[2023-09-28 09:30] LABS: Alanine Aminotransferase 22 U/L (16-63); Albumin Level 3.8 g/dL (3.4-5.0); Alkaline Phosphatase 38 U/L (46-116); Anion Gap 5 mmol/L (4-12); Aspartate Amino Transferase 19 U/L (15-37); Bilirubin,Total 0.4 mg/dL (0.00-1.00); Blood Urea Nitrogen 11 mg/dL (7-18); Calcium 9.4 mg/dL (8.5-10.1); Carbon Dioxide 30 mmol/L (21-32); Chloride 93 mmol/L (98-108); Cholesterol 160 mg/dL (0-200); Creatine Kinase 44 U/L (39-308); Estimated Glomerular Filt Rate > 60; Free T3 2.78 pg/mL (2.18-3.98); Free T4 Free Thyroxine 1.02 ng/dL (0.76-1.46); Glucose 101 mg/dL (70-99); HDL Direct 88 mg/dL (40-60); LDL Cholesterol Calculated 60 mg/dL (<130); Magnesium 1.9 mg/dL (1.8-2.4); Osmolality Calculated 265 mOsm/kg (285-295); Potassium 4.7 mmol/L (3.5-5.1); Sodium 128 mmol/L (136-145); Thyroid Stimulating Hormone 1.86 uIU/mL (0.36-3.74); Total Protein 6.9 g/dL (6.4-8.2); Triglycerides 62 mg/dL (0-150)
[2023-10-01 14:58] LABS: PSA, Free 0.4 ng/mL; PSA, Total 2.5 ng/mL (< OR = 4.0); Percent Free Prostate Spec Ag 16 % (calc) (>25)
== END 2023-09-28 08:16 | disposition home or self-care (01) ==
LOC: CHSLAB 08:17
PROVIDERS: PCP Internal Medicine; Visit Provider Internal Medicine
DX: R97.20 Elevated prostate specific antigen [PSA] (principal); I10 Essential (primary) hypertension; E78.2 Mixed hyperlipidemia; R73.01 Impaired fasting glucose; I49.3 Ventricular premature depolarization; L93.0 Discoid lupus erythematosus; R82.90 Unspecified abnormal findings in urine
CPT/HCPCS: 36415; 80053; 80061; 81001; 82550; 83036; 83735; 84153; 84154; 84439; 84443; 84481; 85027; 87077; 87086; 87088; 87186

== ENCOUNTER 2023-10-13 07:52 | Outpatient (CLI) | payer MEDICARE, SELFPAY ==
[2023-10-13 08:36] LABS: Anion Gap 6 mmol/L (4-12); Blood Urea Nitrogen 8 mg/dL (7-18); Calcium 9.1 mg/dL (8.5-10.1); Carbon Dioxide 29 mmol/L (21-32); Chloride 93 mmol/L (98-108); Estimated Glomerular Filt Rate > 60; Glucose 96 mg/dL (70-99); Osmolality Calculated 264 mOsm/kg (285-295); Potassium 4.6 mmol/L (3.5-5.1); Sodium 128 mmol/L (136-145)
== END 2023-10-13 07:53 | disposition home or self-care (01) ==
LOC: CHSLAB 07:54
PROVIDERS: PCP Internal Medicine; Visit Provider Internal Medicine
DX: E87.1 Hypo-osmolality and hyponatremia (principal)
CPT/HCPCS: 36415; 80048

== ENCOUNTER 2023-11-05 09:15 | Outpatient (CLI) | payer MEDICARE, SELFPAY ==
[2023-11-05 10:44] LABS: Anion Gap 5 mmol/L (4-12); Blood Urea Nitrogen 24 mg/dL (7-18); Calcium 8.9 mg/dL (8.5-10.1); Carbon Dioxide 29 mmol/L (21-32); Chloride 93 mmol/L (98-108); Estimated Glomerular Filt Rate > 60; Glucose 97 mg/dL (70-99); Osmolality Calculated 268 mOsm/kg (285-295); Potassium 4.8 mmol/L (3.5-5.1); Prostate Specific Antigen 1.8 ng/mL (< OR = 4.0); Sodium 127 mmol/L (136-145)
[2023-11-05 11:03] LABS: Add Urine Microscopic? NO; Appearance Urine Clear (Clear); Bilirubin Urine Negative (Negative); Blood Urine Negative (Negative); Color Urine Light Yellow (Yellow); Glucose Urine UA Negative (Negative); Ketones Urine Negative (Negative); Leukocyte Esterase Ur Negative (Negative); Nitrate Urine Negative (Negative); Protein Urine Negative (Negative); Specific Grav Ur 1.015 (1.010-1.020); Urobilinogen Urine 0.2 mg/dL (0.2-1.0)
== END 2023-11-05 09:16 | disposition home or self-care (01) ==
LOC: CHSLAB 09:17
PROVIDERS: PCP Internal Medicine; Visit Provider Internal Medicine
DX: I10 Essential (primary) hypertension (principal); R97.20 Elevated prostate specific antigen [PSA]; R82.81 Pyuria
CPT/HCPCS: 36415; 80048; 81003; 84153; 87086

== ENCOUNTER 2024-04-19 08:38 | Outpatient (CLI) | payer MEDICARE, SELFPAY ==
[2024-04-19 08:51] LABS: Basophils Absolute Auto 0.08 K/mm3 (0.00-0.10); Basophils Percent Auto 0.9 % (0.0-1.0); Eosinophils Absolute Auto 0.33 K/mm3 (0.02-0.50); Eosinophils Percent Auto 3.9 % (1.0-6.0); Hematocrit 40.4 % (37.0-46.0); Hemoglobin 13.5 g/dL (12.4-15.3); Immature Granulocyte Absolute 0.03 K/mm3 (0.00-0.00); Immature Granulocyte Percent A 0.4 % (0.0-0.0); Lymphocytes Absolute Auto 3.19 K/mm3 (1.10-4.50); Lymphocytes Percent Auto 37.6 % (18.0-42.0); Mean Corpuscular HGB Conc 33.4 g/dL (32-36); Mean Corpuscular Hemoglobin 32.3 pg (27.0-31.0); Mean Corpuscular Volume 96.7 fL (78.0-102.0); Mean Platelet Volume 8.6 fl (8.7-11.0); Monocytes Absolute Auto 0.83 K/mm3 (0.10-0.90); Monocytes Percent Auto 9.8 % (2.0-11.0); Neutrophils Absolute Auto 4.02 K/mm3 (1.70-7.20); Neutrophils Percent Auto 47.4 % (50.0-70.0); Platelet Count Result 237 K/mm3 (150-420); Red Blood Count 4.18 M/mm3 (4.70-6.10); Red Cell Distribution Width 13.6 % (11.6-14.4); White Blood Count 8.5 K/mm3 (4.8-10.8)
[2024-04-19 08:55] LABS: Add Urine Microscopic? NO; Appearance Urine Clear (Clear); Bilirubin Urine Negative (Negative); Blood Urine Negative (Negative); Color Urine Light Yellow (Yellow); Glucose Urine UA Negative (Negative); Ketones Urine Negative (Negative); Leukocyte Esterase Ur Negative LEU/UL (Negative); Nitrate Urine Negative (Negative); Protein Urine Negative (Negative); Urobilinogen Urine 0.2 mg/dL (0.2-1.0)
[2024-04-19 09:00] LABS: Creatinine Urine 106.12 mg/dL (40-278); MALB Creatinine Ratio 16.7 mg/g (0-30); Microalbumin Urine Random 17.8 mg/L
--- OUTSIDE RECORDS SUMMARY | 2024-04-19 09:02 | XMS_ITS | Clinical Summary ---
Author Organization [facility] Address [address] [place] [address] [place] [address] Care Team Providers Care Board Layer Name Role Phone Alize Choudhury MD Primary Care Provider [phone] Kar Canada MD Unavailable Daniel Powell MD Unavailable [phone] Allergies No known active allergies Medications atenolol 25 MG tabletIndicatio ns:1/2 tablet Take 25 mg by mouth daily. Reasons1/2 tablet Active amLODIPine (NORVASC) 5 MG tablet Take 5 mg by mouth daily. 11/17/2021 Active rosuvastatin (CRESTOR) 10 MG tablet Take 10 mg by mouth daily. 12/04/2021 Active aspirin 325 MG tablet Take 325 mg by mouth daily. Active lisinopril (PRINIVIL) 20 MG tablet Take 20 mg by mouth daily. DIRECTED 02/16/2022 Active hydroCHLOROthia zide (MICROZIDE) 12.5 MG capsule take 1 capsule by mouth every morning 90 capsule 2 05/10/2023 Active cilostazol (PLETAL) 100 MG tablet take 1 tablet by mouth twice a day 180 tablet 2 01/03/2024 Active Active Problems Problem Noted Date Diagnosed Date PAD (peripheral artery disease) 01/07/2022 Smoker 01/21/2016 COPD (chronic obstructive pu lmonary disease) ([facility]) Carotid artery disease without cerebral infarcti on Hypertension Hyperlipidemia Tobacco abuse Family History Medical History Relation Comments Stroke Brother Heart Mother Cancer Sister Relation Status Comments Brother Alive Father Maternal Grandfather Maternal Grandmother Mother Paternal Grandfather Paternal Grandmother Sister Alive Social History Tobacco Use Types Packs/Day Years Used Date Smoking Tobacco: Every Day Cigarettes 0.5 30 Smokeless Tobacco: Never Tobacco Cessation:Ready to Q uit: Yes; Counseling Given: Yes Alcohol Use Standard Drinks/Week Comments No 0 (1 standard drink = 0.6 oz pur e alcohol) Sex and Gender Information Value Date Recorded Sex Assigned at Not on file Legal Sex Male 1:39 PM CDT Gender Identity Not on file Sexual Orientation Not on file Last Filed Vital Signs Vital Sign Reading Time Taken Comments Blood Pressure 140/74 10/26/2023 1:11 PM CDT Pulse 93 10/26/2023 1:11 PM CDT Temperature - - Respiratory Rate 20 10/26/2023 1:11 PM CDT Oxygen Saturation 100% 10/20/2022 1:52 PM CDT Inhaled Oxygen Concentration - - Weight 69.4 kg (153 lb 1.6 oz) 10/26/2023 1:11 P M CDT Height 172.7 cm (5' 8 ) 10/26/2023 1:11 PM CDT Body Mass Index 23.28 10/26/2023 1:11 PM CDT Plan of Treatment Upcoming Encounters Date Type Department Care Team (Late st Contact Info) Description 10/27/2024 1:[address] [facility] [address] [place] [address] Kar Canada MD [address] [place], [place] [id number] 10/27/2024 1:[address] [facility] [place] [address] Kar Canada MD [address] [place], [place] [id number] 11/07/2024 1:00 PM CDT Office Visit [facility] [address] [place] [address] Kar Canada MD [address] [place] [address] Health Maintenance Due Date Last Done Comments ASCVD Statin 1955 Colorectal Cancer Screening Colonoscopy (10 Years) 1955 Pneumococcal Vaccine: 65+ Years (1 of 2 - PCV) 1962 Hepatitis C 1974 DTaP, Tdap and Td Vaccines ( 1 - Tdap) 12/12/1975 RSV Immunization or 60+ Years (1 - Risk 60-74 years 1-dose series) 2016 Annual Medicare Wellness Visit 2021 COVID-19 Vaccine (3 - 2023-2 5 season) 2023 08/17/2020, 07/20/2020 Influenza Adult (#1) 2023 Zoster Vaccines Completed 04/12/2020, 10/04/2019 AAA SCREENING Completed 12/30/2021 Meningococcal B Vaccine Aged Out No l onger eligible based on patient's age to complete this topic Meningococcal Vaccine Aged Out No nataliia juan eligible based on patient's age to complete this topic RSV Immunizations Under 20 Months Aged Out No longer eligible b ased on patient's age to complete this topic Procedures Procedure Name Priority Date/Time Associated Diagnosis Comments CTA AORTO ILIOFEM RUNOFF Routine 12/30/2021 8:31 AM CDT PAD (peripheral artery disease) Limb ischemia from Last 3 Months or Most Recently Relevant to Health Maintenance Results * CTA AORTO ILIOFEM RUNOFF (12/30/2021 8:31 AM CDT) Anatomical Region Laterality Modality Abdomen, Pelvis, Extremity Compu nam Tomography 12/30/2021 12:3 0 PM CDT Impressions 12/30/2021 1:11 PM CDT IMPRESSION: 1. Diffuse atherosclerotic disease as detailed above. The areas of greatest stenosis are in the bilateral external iliac and common femoral arteries as detailed above. Additional focal severe stenosis of the above-knee left popliteal artery. 2. Two-vessel runoff to each foot as described. There is also right greater than left calcific tibioperoneal trunk disease, mild to moderate. 3. Normal caliber aorta with diffuse, mostly calcific disease and a few subcentimeter ulcerated plaques. 4. Diffuse long segment wall thickening involving the sigmoid colon. There is also more subtle mucosal hyperenhancement of the distal small bowel. Findings could reflect enterocolitis, inflammatory bowel disease, or less likely sigmoid malignancy (considered unlikely given the relatively diffuse involvement of the sigmoid). Correlation with symptoms and laboratory values is suggested, with consideration for gastroenterology consultation if there is no known explanation for these findings. Ordered By: ALIZE CHOUDHURY Interpreted By: Roby Gillespie MD, 12/30/2021 12:30 PM Narrative 12/30/2021 1:11 PM CDT STUDY: CT angiogram of the abdominal aorta, pelvis, and bilateral lower extremities. INDICATION: ??Diminished pedal pulses, evaluate for peripheral arterial disease TECHNIQUE: Multidetector CT from the chest, through the feet was acquired using thin collimation, ??after the administration of 120 cc Isovue 370, intravenously. ??Delayed images were obtained. ??Additionally, multiplanar reformats including volume rendered images and MIPs were created on a separate workstation with these images sent to PACS. ??A dose lowering technique was used for this procedure, which may include, but is not limited to, dose reduction techniques, automated exposure control, the use of a iterative reconstruction, and ALARA (as low as reasonably achievable)/image gently techniques. COMPARISON: None. FINDINGS: Abdominal Aorta and Visceral Arteries: Abdominal aorta is normal in caliber with diffuse mixed calcific and noncalcific atherosclerotic change. There are a few small ulcerated plaques of less than 1 cm diameter. Conventional mesenteric branching is noted. Plaque at the celiac artery origin results in less than 50% stenosis. Plaque at the SMA origin results in no significant stenosis. On the right, 3 renal arteries are present, the 2 more superior being the larger vessels arising immediately adjacent to one another without significant stenosis. A smaller, slightly more inferior branch supplying anterior aspect of the lower pole may have a mild to moderate stenosis approaching 50%, somewhat difficult to assess given the small caliber. Single left renal artery shows plaque at the origin and proximal portion of the vessel, stenosis up to about 50%. Inferior mesenteric artery is patent, with origin partially obscured due to blooming artifact from dense calcification. Right lower extremity runoff: There is heavily calcified plaque throughout the right common iliac artery, although individual areas of stenosis appear to be less than 50% severity. Long segment moderate, partially calcified disease of the right external iliac is noted, stenosis probably up to about 60%. There is heavily calcified plaque of the right common femoral artery, resulting in focal stenosis up to about 60%. Profunda femoral artery is patent. Superficial femoral artery disease is most pronounced proximally, with stenosis of up to about 50% secondary to heavily calcified plaque. Remainder of the SFA shows milder stenoses of less than 50%. There is progressive calcific disease in the distal aspect of the abductor canal and the above-knee portion of the popliteal artery, stenoses in the 30-50% range. Below the knee, the popliteal artery shows less disease. There is a normal tibial trifurcation. Right anterior tibial is patent to the foot with minimal disease proximally. Tibioperoneal trunk shows moderate distal stenosis. The posterior tibial is the dominant runoff vessel to the foot, and is widely patent beyond the tibioperoneal trunk disease. Peroneal artery tapers gradually at the ankle. Left lower extremity runoff: There is diffuse, mostly calcific disease of the left common iliac, although individual stenoses are less than 50%. There is moderate to severe stenosis at the origin of the left internal iliac, but the vessel is patent. A severe stenosis of the proximal left external iliac artery is noted, approximately 70-80% severity, mostly secondary to noncalcified plaque at this location. There are multiple other stenoses of at least 50% severity throughout the left external iliac. There is diffuse narrowing of the left common femoral artery, about 50-60% severity. Profunda is patent with moderate origin stenosis. Left SFA is a diminutive vessel throughout, with calcific areas of mild to moderate stenosis both proximally and distally. Focal severe stenosis of the above-knee popliteal artery is noted, likely 70-80%. Distal popliteal artery shows mild calcific disease, stenoses of less than 50%. Anterior tibial artery is patent to the foot, although there is relatively poor opacification of the dorsalis pedis, which is diminutive. There is calcific disease involving the tibioperoneal trunk with mild stenosis. Posterior tibial is the dominant runoff to the left foot and shows minimal disease throughout. Peroneal artery tapers gradually at the ankle. Nonvascular findings: Chest: Heart size is normal. There is no pleural or pericardial effusion. Calcified granulomata are identified in both lung bases. Abdomen: The liver, gallbladder, biliary tree, pancreas, spleen, and adrenal glands are unremarkable. There is no hydronephrosis. No solid or enhancing renal lesion is identified. There are simple renal cysts bilaterally, which do not require specific additional follow-up. There is no evidence of abnormal bowel distention or obstruction. However, mild mucosal enhancement is noted in the distal small bowel, without associated wall thickening. In addition, there is long segment wall thickening involving the majority of the sigmoid colon. Within the abdomen there is no abnormal fluid, mass, or adenopathy. ?? Pelvis: The urinary bladder is unremarkable. The prostate is moderately enlarged. Seminal vesicles, rectum, and perirectal fat appear normal. There is no pelvic adenopathy or free fluid. No destructive osseus lesion is identified. Procedure Note Roby Gillespie MD - 12/30/2021 STUDY: CT angiogram of the abdominal aorta, pelvis, and bilateral lowerextremities. INDICATION: Diminished pedal pulses, evaluate for peripheral arterialdisease TECHNIQUE: Multidetector CT from the chest, through the feet was acquiredusing thin collimation, after the administration of 120 cc Isovue 370,intravenously. Delayed images were obtained. Additionally, multiplanarreformats including volume rendered images and MIPs were created on [employer] workstation with these images sent to PACS. A dose loweringtechnique was used for this procedure, which may include, but is notlimited to, dose reduction techniques, automated exposure control, the useof a iterative reconstruction, and ALARA (as low as reasonablyachievable)/image gently techniques. COMPARISON: None. FINDINGS: Abdominal Aorta and Visceral Arteries: Abdominal aorta is normal in caliber with diffuse mixed calcific andnoncalcific atherosclerotic change. There are a few small ulceratedplaques of less than 1 cm diameter. Conventional mesenteric branching isnoted. Plaque at the celiac artery origin results in less than 50%stenosis. Plaque at the SMA origin results in no significant stenosis. Onthe right, 3 renal arteries are present, the 2 more superior being thelarger vessels arising immediately adjacent to one another withoutsignificant stenosis. A smaller, slightly more inferior branch supplyinganterior aspect of the lower pole may have a mild to moderate stenosisapproaching 50%, somewhat difficult to assess given the small caliber.Single left renal artery shows plaque at the origin and proximal portionof the vessel, stenosis up to about 50%. Inferior mesenteric artery ispatent, with origin partially obscured due to blooming artifact from densecalcification. Right lower extremity runoff: There is heavily calcified plaque throughout the right common iliacartery, although individual areas of stenosis appear to be less than 50%severity. Long segment moderate, partially calcified disease of the rightexternal iliac is noted, stenosis probably up to about 60%. There isheavily calcified plaque of the right common femoral artery, resulting infocal stenosis up to about 60%. Profunda femoral artery is patent.Superficial femoral artery disease is most pronounced proximally, withstenosis of up to about 50% secondary to heavily calcified plaque.Remainder of the SFA shows milder stenoses of less than 50%. There isprogressive calcific disease in the distal aspect of the abductor canaland the above-knee portion of the popliteal artery, stenoses in the 30-50%range. Below the knee, the popliteal artery shows less disease. There is anormal tibial trifurcation. Right anterior tibial is patent to the footwith minimal disease proximally. Tibioperoneal trunk shows moderate distal stenosis. The posterior tibial is the dominant runoff vessel to thefoot, and is widely patent beyond the tibioperoneal trunk disease.Peroneal artery tapers gradually at the ankle. Left lower extremity runoff: There is diffuse, mostly calcific disease of the left common iliac,although individual stenoses are less than 50%. There is moderate tosevere stenosis at the origin of the left internal iliac, but the vesselis patent. A severe stenosis of the proximal left external iliac artery isnoted, approximately 70-80% severity, mostly secondary to noncalcifiedplaque at this location. There are multiple other stenoses of at least 50%severity throughout the left external iliac. There is diffuse narrowing ofthe left common femoral artery, about 50-60% severity. Profunda is patentwith moderate origin stenosis. Left SFA is a diminutive vessel throughout,with calcific areas of mild to moderate stenosis both proximally anddistally. Focal severe stenosis of the above-knee popliteal artery isnoted, likely 70-80%. Distal popliteal artery shows mild calcific disease,stenoses of less than 50%. Anterior tibial artery is patent to the foot,although there is relatively poor opacification of the dorsalis pedis, which is diminutive. There is calcific disease involvingthe tibioperoneal trunk with mild stenosis. Posterior tibial is thedominant runoff to the left foot and shows minimal disease throughout.Peroneal artery tapers gradually at the ankle. Nonvascular findings: Chest: Heart size is normal. There is no pleural or pericardial effusion.Calcified granulomata are identified in both lung bases. Abdomen: The liver, gallbladder, biliary tree, pancreas, spleen, and adrenal glandsare unremarkable. There is no hydronephrosis. No solid or enhancing renallesion is identified. There are simple renal cysts bilaterally, which donot require specific additional follow-up. There is no evidence of abnormal bowel distention or obstruction.However, mild mucosal enhancement is noted in the distal small bowel,without associated wall thickening. In addition, there is long segmentwall thickening involving the majority of the sigmoid colon. Within theabdomen there is no abnormal fluid, mass, or adenopathy. Pelvis: The urinary bladder is unremarkable. The prostate is moderately enlarged.Seminal vesicles, rectum, and perirectal fat appear normal. There is nopelvic adenopathy or free fluid. No destructive osseus lesion is identified. IMPRESSION: 1. Diffuse atherosclerotic disease as detailed above. The areas ofgreatest stenosis are in the bilateral external iliac and common femoralarteries as detailed above. Additional focal severe stenosis of theabove-knee left popliteal artery. 2. Two-vessel runoff to each foot as described. There is also rightgreater than left calcific tibioperoneal trunk disease, mild tomoderate. 3. Normal caliber aorta with diffuse, mostly calcific disease and a fewsubcentimeter ulcerated plaques. 4. Diffuse long segment wall thickening involving the sigmoid colon. Thereis also more subtle mucosal hyperenhancement of the distal small bowel.Findings could reflect enterocolitis, inflammatory bowel disease, or lesslikely sigmoid malignancy (considered unlikely given the relativelydiffuse involvement of the sigmoid). Correlation with symptoms andlaboratory values is suggested, with consideration for gastroenterologyconsultation if there is no known explanation for these findings. Ordered By: ALIZE CHOUDHURY Interpreted By: Roby Gillespie MD, 12/30/2021 12:30 PM Alize Choudhury MD CT Final Result from Last 3 Months or Most Recently Relevant to Health Maintenance Insurance [employer] Care Teams Board Layer Relationship Specialty Start Date End Date Alize Choudhury MD [address] [place] [address] PCP - General INTERNAL MEDICINE 01/10/16 Kar Canada MD [address] [place] [address] INTERNAL MEDICINE 01/10/16 Daniel Powell MD [address] [place] [address] CARDIOTHORACIC SURGERY 12/19/20
--- OUTSIDE RECORDS SUMMARY | 2024-04-19 09:02 | XMS_ITS | Encounter Summary ---
Author Organization [facility] Address [address] [place] [address] [place] [address] Care Team Providers Care Fill Manager Name Role Phone Alize Birmingham MD Primary Care Provider [phone] Kar Canada MD Unavailable Daniel Powell MD Unavailable [phone] Encounter Details Date Type Department Care Team (Late st Contact Info) Description 01/17/2016 Abstract [facility] [address] [place] [phone] Kar Canada MD [address] [place] [address] Social History Tobacco Use Types Packs/Day Years Used Date Smoking Tobacco: Every Day Cigarettes 1 30 Smokeless Tobacco: Never Alcohol Use Standard Drinks/Week Comments No 0 (1 standard drink = 0.6 oz pur e alcohol) Sex and Gender Information Value Date Recorded Sex Assigned at Not on file Legal Sex Male 1:39 PM CDT Gender Identity Not on file Sexual Orientation Not on file documented as of this encounter Plan of Treatment Upcoming Encounters Date Type Department Care Team (Late st Contact Info) Description 10/27/2024 1:[address] [facility] [address] [place] [address] Kar Canada MD [address] [place], [place] [address] 10/27/2024 1:30 PM CDT Appointment [facility] [address] [facility] [address] Kar Canada MD [address] [place], [place] [address] 11/07/2024 1:00 PM CDT Office Visit [facility] [address] [place] [address] Kar Canada MD [address] [place] [address] documented as of this encounter Visit Diagnoses Not on filedocumented in this encounter Care Teams Fill Manager Relationship Specialty Start Date End Date Alize Birmingham MD [address] [place] [phone] PCP - General INTERNAL MEDICINE 01/10/16 Kar Canada MD [address] [place] [address] INTERNAL MEDICINE 01/10/16 Daniel Powell MD [address] [place] [address] CARDIOTHORACIC SURGERY 12/19/20 documented as of this encounter
[2024-04-19 09:50] LABS: Alanine Aminotransferase 29 U/L (16-63); Albumin Level 3.6 g/dL (3.4-5.0); Alkaline Phosphatase 46 U/L (46-116); Anion Gap 5 mmol/L (4-12); Aspartate Amino Transferase 30 U/L (15-37); Bilirubin,Total 0.5 mg/dL (0.00-1.00); Blood Urea Nitrogen 7 mg/dL (7-18); Calcium 9.3 mg/dL (8.5-10.1); Carbon Dioxide 30 mmol/L (21-32); Chloride 97 mmol/L (98-108); Cholesterol 169 mg/dL (0-200); Creatine Kinase 56 U/L (39-308); Estimated Glomerular Filt Rate > 60; Glucose 97 mg/dL (70-99); HDL Direct 101 mg/dL (40-60); LDL Cholesterol Calculated 61 mg/dL (<130); Osmolality Calculated 272 mOsm/kg (285-295); Potassium 4.6 mmol/L (3.5-5.1); Prostate Specific Antigen 2.6 ng/mL (< OR = 4.0); Sodium 132 mmol/L (136-145); Total Protein 6.3 g/dL (6.4-8.2); Triglycerides 37 mg/dL (0-150)
== END 2024-04-19 08:39 | disposition home or self-care (01) ==
PROVIDERS: PCP Internal Medicine; Visit Provider Internal Medicine
DX: R73.01 Impaired fasting glucose (principal); N39.0 Urinary tract infection, site not specified; I10 Essential (primary) hypertension; E78.2 Mixed hyperlipidemia; R97.20 Elevated prostate specific antigen [PSA]
CPT/HCPCS: 36415; 80053; 80061; 81003; 82043; 82550; 83036; 84153; 85025

== ENCOUNTER 2024-05-05 09:56 | Outpatient (CLI) | payer MEDICARE, SELFPAY ==
--- NOTE | ~2024-05-05 | XR_ITS ---
EXAMINATION: XR chest 2V 05/05/2024 10:08 INDICATION: COPD PROCEDURE: 2 view chest COMPARISON: Comparison to multiple prior studies sequentially, with oldest reviewed study dated 06/17. FINDINGS: The lungs are clear. There are calcified granulomas of the lungs. The cardiomediastinal adonis houette is within normal limits. There are no pleural effusions. There is no pneumothorax suspected . IMPRESSION: 1: NO ACUTE CARDIOPULMONARY DISEASE. Reviewed, dictated and finalized at location B. NSING OFFICER
--- OUTSIDE RECORDS SUMMARY | 2024-05-05 10:07 | XMS_ITS | Encounter Summary ---
Author Organization [facility] Address [address] [place] [address] Care Team Providers Care Graining Operator Name Role Phone Alize Birmingham MD Primary Care Provider [phone] Kar Canada MD Unavailable Daniel Powell MD Unavailable [phone] Encounter Details Date Type Department Care Team (Late st Contact Info) Description 01/17/2016 Abstract [facility] [address] [place] [phone] Kar Canada MD [address] [place] [address] Social History Tobacco Use Types [...] Info) Description 10/27/2024 1:00 PM CDT Appointment [facility] [address] [place] [address] Kar Canada MD [address] [place], [place] [address] 10/27/2024 1:30 PM CDT Appointment [facility] [address] [facility] [place] [address] Kar Canada MD [address] [place], [place] [address] 11/07/2024 1:00 PM CDT Office Visit [facility] [address] [facility] [address] [place] [address] Kar Canada MD [address] [place] [address] documented as of this encounter Visit Diagnoses Not on filedocumented in this encounter Care Teams Graining Operator Relationship Specialty Start Date End Date Alize Birmingham MD [address] [place] [phone] PCP - General INTERNAL MEDICINE 01/10/16 Kar Canada MD [address] [place] [address] INTERNAL MEDICINE 01/10/16 Daniel Powell MD [address] [place] [address] CARDIOTHORACIC SURGERY 12/19/20 documented as of this encounter
--- OUTSIDE RECORDS SUMMARY | 2024-05-05 10:07 | XMS_ITS | Clinical Summary ---
Author Organization [facility] Address [address] [place] [address] Care Team Providers Care Payroll Representative Name Role Phone Alize Choudhury MD Primary Care Provider [phone] Kar Canada MD Unavailable Daniel Powell MD Unavailable [phone] Allergies No known active allergies Medications atenolol [...] 01/21/2016 COPD (chronic obstructive pu lmonary disease) ([facility]) Carotid artery disease without cerebral infarcti on [...] 1:[address] [facility] [address] [place] [place] [address] Kar Canada MD [address] [place], [place] [address] 10/27/2024 1:[address] [facility] [address] [place] [place] [address] Kar Canada MD [address] [place], [place] [address] 11/07/2024 1:00 PM CDT [facility] [place] [address] Kar Canada MD [address] [place], [place] [address] Health Maintenance Due Date Last Done Comments [...] 2023 08/17/2020, 07/20/2020 Influenza Adult (#1) 2023 ASCVD LDL 03/30/2024 03/30/2023 Zoster Vaccines Completed 04/12/2020, 10/04/2019 AAA SCREENING [...] Procedure Name Priority Date/Time Associated Diagnosis Comments LIPID PANEL Routine 03/30/2023 CTA AORTO ILIOFEM RUNOFF Routine 12/30/2021 8:31 AM CDT PAD (peripheral artery disease) Limb ischemia from Last 3 Months or Most Recently Relevant to Health Maintenance Results * (ABNORMAL) LIPID PANEL (03/30/2023) CHOLESTEROL 156 0 - 200 TRIGLYCERIDES 70 0 - 150 HDL 74(A) 40 - 60 LDL (CALCULATED) 68 0 - 130 DIRECT LDL 0 0 - 0 us Doc [facility] Final Result * CTA AORTO ILIOFEM RUNOFF (12/30/2021 8:31 [...] aorta, pelvis, and bilateral lower extremities. INDICATION: Diminished pedal pulses, evaluate for peripheral arterial disease TECHNIQUE: Multidetector CT from the chest, through the feet was acquired using thin collimation, after the administration of 120 cc Isovue 370, intravenously. Delayed images were obtained. Additionally, multiplanar reformats including volume rendered images and MIPs were created on a separate workstation with these images sent to PACS. A dose lowering technique was used for this [...] rendered images and MIPs were created on [employer] workstation with these images sent to PACS. [...] By: Roby Gillespie MD, 12/30/2021 12:30 PM us Alize Choudhury MD CT Final Result from Last 3 Months or Most Recently Relevant to Health Maintenance Insurance [employer] Care Teams Payroll Representative Relationship Specialty Start Date End Date Alize Choudhury MD [address] [place] [phone] PCP - General INTERNAL MEDICINE 01/10/16 Kar Canada MD [address] [place] [id number] INTERNAL MEDICINE 01/10/16 Daniel Powell MD [address] [place] [id number] CARDIOTHORACIC SURGERY 12/19/20
== END 2024-05-05 09:57 | disposition home or self-care (01) ==
LOC: CHSIMG 09:57
PROVIDERS: PCP Internal Medicine; Visit Provider Internal Medicine
DX: J44.9 Chronic obstructive pulmonary disease, unspecified (principal)
CPT/HCPCS: 71046

== ENCOUNTER 2024-10-17 08:13 | Outpatient (CLI) | payer MEDICARE, SELFPAY ==
--- OUTSIDE RECORDS SUMMARY | 2024-10-17 08:16 | XMS_ITS | Clinical Summary ---
Author Organization [facility] Address [address] [place] [address] Care Team Providers Care Rotary Cutter Operator Name Role Phone Alize Choudhury MD Primary Care Provider [phone] Daniel Powell MD Unavailable [phone] Carlos Villa MD Unavailable [phone] Allergies No known active allergies Medications atenolol 25 MG tabletIndicatio ns:1/2 tablet Take 25 mg by mouth daily. Reasons1/2 tablet Active amLODIPine (NORVASC) 5 MG tablet Take 5 mg by mouth daily. 2 Active rosuvastatin (CRESTOR) 10 MG tablet Take 10 mg by mouth daily. 2 Active aspirin 325 MG tablet Take 325 mg by mouth daily. Active lisinopril (PRINIVIL) 20 MG tablet Take 20 mg by mouth daily. DIRECTED 2 Active hydroCHLOROthia zide (MICROZIDE) 12.5 MG capsule take 1 capsule by mouth every morning 90 capsule 2 4 Active cilostazol (PLETAL) 100 MG tablet Take 1 tablet (100 mg total) by mouth 2 (two) times daily. 180 tablet 5 Active cilostazol (PLETAL) 100 MG tablet take 1 tablet by mouth twice a day 180 tablet 2 4 09/29/19 25 Discontinu ed(Reorder ) Active Problems Problem Noted Date Diagnosed Date PAD (peripheral artery disease) 01/07/2022 Smoker 01/21/2016 COPD (chronic obstructive pu lmonary disease) ([facility]/HCC HHS/HCC) Carotid artery disease without cerebral infarcti on Hypertension Hyperlipidemia Tobacco abuse Encounters Date Type Department Care Team Description 09/27/2024 Telephone [facility] [address] [place] [address] Carlos Villa MD Refill Request from Last 3 Months Family History Medical History Relation Comments Stroke [...] P M CDT Height 172.7 cm (5' 8) 10/26/2023 1:11 PM CDT Body Mass Index 23.28 10/26/2023 1:11 PM CDT Plan of Treatment Upcoming Encounters Date Type Department Care Team (Late st Contact Info) Description 10/24/2024 9:30 AM CDT Appointment [facility] [place] [address] [place] [address] Ric Parker MD [address] [place] [address] 10/27/2024 1:[address] [facility] [address] [place] [address] Kar Canada MD [address] [facility], [address] [place] [address] 10/27/2024 1:30 PM CDT Appointment [address] [place] [address] Kar Canada MD [address] [facility] [place], [address] [place] [address] 11/07/2024 1:15 PM CDT Office Visit [facility] [id number] [facility] [place] [address] Carlos Villa MD [address] [facility] [address] [place] [address] Health Maintenance Due Date Last Done Comments ASCVD Statin 1955 Colorectal Cancer Screening Colonoscopy (10 Years) 1956 Hepatitis C 1974 DTaP, Tdap and Td Vaccines ( 1 - Tdap) 12/12/1975 Pneumococcal Vaccine: 50+ Years (1 of 2 - PCV) 12/12/1975 RSV Immunization or 60+ Years (1 - Risk 60-74 years 1-dose series) 2016 Annual Medicare Wellness Visit 2021 COVID-19 Vaccine (3 - 2023-2 5 season) 2023 08/17/2020, 07/20/2020 ASCVD LDL 03/30/2024 03/30/2023 Zoster Vaccines Completed [...] rendered images and MIPs were created on [employer] workstation with these images sent to PACS. [...] to Health Maintenance Insurance [employer] Care Teams Rotary Cutter Operator Relationship Specialty Start Date End Date Alize Choudhury MD [address] [place] [phone] PCP - General INTERNAL MEDICINE 01/10/16 Daniel Powell MD [address] [place] [phone] CARDIOTHORACIC SURGERY 12/19/20 Carlos Villa MD [address] [facility] [address] [place] [address] Physician INTERVENTIONAL CARDIOLOGY 03/22/23
--- OUTSIDE RECORDS SUMMARY | 2024-10-17 08:16 | XMS_ITS | Encounter Summary ---
Author Organization [facility] Address [address] [place] [address] Care Team Providers Care Grocery Clerk Stocking Name Role Phone Alize Birmingham MD Primary Care Provider [phone] Kar Canada MD Unavailable Daniel Powell MD Unavailable [phone] Carlos Villa MD Unavailable [phone] Encounter Details Date Type Department Care Team (Late Contact Info) Description 01/17/2016 Abstract [facility] [address] [place] [address] Kar Canada MD [address] [facility] [address] [place] [address] Social History Tobacco Use Types Packs/Day Years [...] Encounters Date Type Department Care Team (Late Contact Info) Description 10/24/2024 9:[address] [facility] - [place] [address] [place] [address] Ric Parker MD [address] [place] [address] 10/27/2024 1:[address] [facility] [address] [place] [address] Kar Canada MD [address] [facility], [address] [place] [address] 10/27/2024 1:[address] [facility] [place] [address] Kar Canada MD [address] [facility] [place] [address] 11/07/2024 1:15 PM CDT Office Visit [facility] [place] [phone] Carlos Villa MD [address] [place] [address] documented as of this encounter Visit Diagnoses Not on filedocumented in this encounter Care Teams Grocery Clerk Stocking Relationship Specialty Start Date End Date Alize Birmingham MD [address] [place] [phone] PCP - General INTERNAL MEDICINE 01/10/16 Kar Canada MD [address] [place] [phone] INTERNAL MEDICINE 01/10/16 05/26/24 Daniel Powell MD [address] [place] [phone] CARDIOTHORACIC SURGERY 12/19/20 Carlos Villa MD [address] [facility] [address] [place] [address] Physician INTERVENTIONAL CARDIOLOGY 03/22/23 documented as of this encounter
[2024-10-17 08:26] LABS: Hematocrit 36.7 % (37.0-46.0); Hemoglobin 12.8 g/dL (12.4-15.3); Immature Granulocyte Percent A 0.3 % (0.0-0.0); Lymphocytes Absolute Auto 2.99 K/mm3 (1.10-4.50); Mean Corpuscular HGB Conc 34.9 g/dL (32-36); Mean Corpuscular Hemoglobin 32.5 pg (27.0-31.0); Mean Corpuscular Volume 93.1 fL (78.0-102.0); Nucleated Red Blood Cells Absolute Auto 0.00 K/mm3 (0.00-0.00); Nucleated Red Blood Cells Perc 0.0 % (0-0.0); Platelet Count Result 220 K/mm3 (150-420); Red Blood Count 3.94 M/mm3 (4.70-6.10); White Blood Count 7.5 K/mm3 (4.8-10.8)
[2024-10-17 08:27] LABS: Add Urine Microscopic? NO; Appearance Urine Clear (Clear); Glucose Urine UA Negative (Negative); Leukocyte Esterase Ur Negative (Negative); Nitrate Urine Negative (Negative); Specific Grav Ur 1.010 (1.010-1.020)
[2024-10-17 08:44] LABS: Hemoglobin A1C 5.1 % (<5.7)
[2024-10-17 08:47] LABS: Alanine Aminotransferase 21 U/L (6-50); Albumin Level 3.8 g/dL (3.5-5.1); Alkaline Phosphatase 43 U/L (38-126); Anion Gap 2 mmol/L (4-12); Aspartate Amino Transferase 29 U/L (17-59); Bilirubin,Total 0.5 mg/dL (0.2-1.3); Blood Urea Nitrogen 11 mg/dL (9-20); Calcium 9.2 mg/dL (8.4-10.2); Carbon Dioxide 27 mmol/L (22-30); Chloride 98 mmol/L (98-107); Cholesterol 145 mg/dL (0-200); Creatine Kinase 34 U/L (55-170); Estimated Glomerular Filt Rate > 60; Glucose 101 mg/dL (65-110); HDL Direct 92 mg/dL; Osmolality Calculated 263 mOsm/kg (285-295); Potassium 4.5 mmol/L (3.4-5.0); Sodium 127 mmol/L (137-145); Total Protein 6.0 g/dL (6.3-8.2); Triglycerides 64 mg/dL (<150)
[2024-10-17 09:03] LABS: Free T3 3.41 pg/mL (2.18-3.98)
[2024-10-17 09:04] LABS: Free T4 Free Thyroxine 1.13 ng/dL (0.78-2.19)
[2024-10-17 09:18] LABS: Thyroid Stimulating Hormone 1.580 uIU/mL (0.465-4.680)
== END 2024-10-17 08:14 | disposition home or self-care (01) ==
LOC: CHSLAB 08:14
PROVIDERS: PCP Internal Medicine; Visit Provider Internal Medicine
DX: I10 Essential (primary) hypertension (principal); E78.2 Mixed hyperlipidemia; L93.0 Discoid lupus erythematosus; I49.3 Ventricular premature depolarization; B87.1 Wound myiasis; R73.01 Impaired fasting glucose
CPT/HCPCS: 36415; 80053; 80061; 81003; 82550; 83036; 84439; 84443; 84481; 85025

== ENCOUNTER 2024-10-23 09:24 | Outpatient (CLI) | payer MEDICARE, SELFPAY ==
--- NOTE | ~2024-10-23 | XR_ITS ---
EXAMINATION: XR chest 2V 10/23/2024 09:40 INDICATION: COPD. PROCEDURE: 2 view chest COMPARISON: Comparison to multiple prior studies sequentially, with oldest reviewed study dated 12/21. FINDINGS: The lungs are clear. The cardiomediastinal silhouette is within normal limits. There are no pleural effusions. There is no pneumothorax suspected. There are calcified granulomas of the quentin gs. IMPRESSION: 1: NO ACUTE CARDIOPULMONARY DISEASE. Reviewed, dictated and finalized at location A.
--- OUTSIDE RECORDS SUMMARY | 2024-10-23 09:39 | XMS_ITS | Encounter Summary ---
Author Organization [facility] Address [address] [place] [address] Care Team Providers Care Nib Inspector Name Role Phone Alize Birmingham MD Primary Care Provider [phone] aKr Canada MD Unavailable Daniel Powell MD Unavailable [phone] Carlos Villa MD Unavailable [phone] Encounter Details Date Type Department Care Team (Late Contact Info) Description 01/17/2016 Abstract [facility] [address] [place] [address] Kar Canada MD [address] [facility], [address] [place] [address] Social History Tobacco Use Types [...] Info) Description 10/24/2024 9:30 AM CDT Appointment [facility] - [place] [address] [place] [address] Ric Parker MD [address] [place] [address] 10/27/2024 1:[address] [facility] [address] [place] [address] Kar Canada MD [address] [facility], [facility] [address] [place] [address] 10/27/2024 1:[address] [facility] [address] [place], [place] [address] [place] [address] Kar Canada MD [address] [facility], [facility] [address] [place] [address] 11/07/2024 1:15 PM CDT Office Visit [facility] [place] [phone] Carlos Villa MD [address] [place] [address] documented as of this encounter Visit Diagnoses Not on filedocumented in this encounter Care Teams Nib Inspector Relationship Specialty Start Date End Date Alize Birmingham MD [address] [place] [address] PCP - General INTERNAL MEDICINE 01/10/16 Kar Canada MD [facility] [place] [phone] INTERNAL MEDICINE 01/10/16 05/26/24 Daniel Powell MD [address] [place] [phone] CARDIOTHORACIC SURGERY 12/19/20 Carlos Villa MD [address] [facility] [address] [place] [address] Physician INTERVENTIONAL CARDIOLOGY 03/22/23 documented as of this encounter
--- OUTSIDE RECORDS SUMMARY | 2024-10-23 09:39 | XMS_ITS | Clinical Summary ---
Author Organization [facility] Address [address] [place] [address] Care Team Providers Care Land Acquisition Analyst Name Role Phone Alize Choudhury MD Primary Care Provider Daniel Powell MD Unavailable [phone] Carlos Villa MD Unavailable [phone] Allergies No known active allergies Medications atenolol [...] 01/21/2016 COPD (chronic obstructive pu lmonary disease) ([facility]/HCC HHS/HCC) Carotid artery disease without cerebral infarcti on Hypertension Hyperlipidemia Tobacco abuse Encounters Date Type Department Care Team Description 09/27/2024 Telephone [facility] [address] [place] [address] Carlos Villa MD Refill Request [...] Info) Description 10/24/2024 9:30 AM CDT Appointment [facility] - [place] [address] [place] [address] Ric Parker MD [address] [place] [address] 10/27/2024 1:00 PM CDT Appointment [facility] [address] [place] [address] Kar Canada MD [address] [facility], [address] [place] [address] 10/27/2024 1:30 PM CDT Appointment [address] [place] [address] Kar Canada MD [address] [facility], [address] [place] [address] 11/07/2024 1:15 PM CDT Office Visit [facility] [phone] [facility] [place] [address] Carlos Villa MD [address] [facility] [address] [place] [address] Health Maintenance Due Date Last Done Comments [...] rendered images and MIPs were created on [employer] workstation with these images sent to PACS. [...] to Health Maintenance Insurance [employer] Care Teams Land Acquisition Analyst Relationship Specialty Start Date End Date Alize Choudhury MD [address] [place] [address] PCP - General INTERNAL MEDICINE 01/10/16 Daniel Powell MD [address] [place] [address] CARDIOTHORACIC SURGERY 12/19/20 Carlos Villa MD [address] [facility] [address] [place] [address] Physician INTERVENTIONAL CARDIOLOGY 03/22/23
== END 2024-10-23 09:25 | disposition home or self-care (01) ==
LOC: CHSIMG 09:25
PROVIDERS: PCP Internal Medicine; Visit Provider Internal Medicine
DX: J44.9 Chronic obstructive pulmonary disease, unspecified (principal)
CPT/HCPCS: 71046

== ENCOUNTER 2024-11-24 08:13 | Outpatient (CLI) | payer MEDICARE, SELFPAY ==
[2024-11-24 08:49] LABS: Anion Gap 7 mmol/L (4-12); Blood Urea Nitrogen 5 mg/dL (9-20); Calcium 9.4 mg/dL (8.4-10.2); Carbon Dioxide 26 mmol/L (22-30); Chloride 95 mmol/L (98-107); Estimated Glomerular Filt Rate > 60; Glucose 108 mg/dL (65-110); Osmolality Calculated 264 mOsm/kg (285-295); Potassium 4.8 mmol/L (3.4-5.0); Sodium 128 mmol/L (137-145)
[2024-11-24 12:24] LABS: Alanine Aminotransferase 26 U/L (6-50); Albumin Level 3.8 g/dL (3.5-5.1); Alkaline Phosphatase 49 U/L (38-126); Aspartate Amino Transferase 38 U/L (17-59); Bilirubin,Total 0.5 mg/dL (0.2-1.3); Total Protein 6.0 g/dL (6.3-8.2)
[2024-11-24 12:29] LABS: GGT 41.7 U/L (15-73)
== END 2024-11-24 08:14 | disposition home or self-care (01) ==
LOC: CHSLAB 08:14
PROVIDERS: PCP Internal Medicine; Visit Provider Internal Medicine
DX: E87.1 Hypo-osmolality and hyponatremia (principal); E78.2 Mixed hyperlipidemia; Z79.899 Other long term (current) drug therapy
CPT/HCPCS: 36415; 80048; 80053; 82977